=== PATIENT | female | born 1970 | race African-American/Black ===

== ENCOUNTER 2016-12-01 17:25 | Emergency (ER) | payer OTHER ==
[~2016-12-01] VITALS: Ht 170.2 cm; Wt 104.3 kg
[~2016-12-01 17:25] MED LIST: ASPI81TA11 PO; CLOP75TA PO; FURO-69 PO; FURO20TA3 PO; LEVO100T5 PO; LEVO175T5 PO; LEVO200T5 PO; LISI2.5T PO; METF10002 PO; SIMV10TA3 PO; SIMV20TA3 PO
[2016-12-01 20:38] LABS: BILIRUBIN,URINE NEGATIVE (NEG); GLUCOSE,URINE NEGATIVE (NEG); NITRITE,URINE NEGATIVE (NEG); PROTEIN,URINE NEGATIVE (NEG-TRACE)
[2016-12-01 21:01] LABS: RBC,URINE 0 /HPF (0-2)
[2016-12-01 21:02] LABS: BACTERIA,URINE FEW /HPF (0-FEW); SQUAMOUS EPITHELIAL CELL,UR OCC /LPF
[2016-12-01] MEDS ORDERED: IV NORMAL SALINE 1000ML BAG 1,000 ML IV SCH (21:16)
[2016-12-01 21:27] LABS: BASO % 0 % (0-3); EOS % 2 % (0-3); HEMATOCRIT 42.4 % (36.0-47.0); HEMOGLOBIN 13.9 g/dL (12.0-15.5); LYMPH # 2.3 x10^3/uL (1.0-4.8); LYMPH % 23 % (24-48); MEAN CORPUSCULAR HEMOGLOBIN 27 pg (25-35); MEAN CORPUSCULAR HGB CONC 33 g/dL (31-37); MEAN CORPUSCULAR VOLUME 83 fL (79-100); MONO % 7 % (0-9); NEUT % 69 % (31-73); PLATELET COUNT 278 x10^3/uL (140-400); RED BLOOD COUNT 5.09 x10^6/uL (3.50-5.40); WHITE BLOOD COUNT 10.3 x10^3/uL (4.0-11.0)
[2016-12-01 21:30] VITALS: BP 127/69
[2016-12-01] MEDS ORDERED: HYDROMORPHONE 2 MG/ML VIAL. IV ONE (21:30)
[2016-12-01] MEDS ORDERED: ONDANSETRON PF 4 MG/2 ML VIAL. IV ONE (21:30)
[2016-12-01] MEDS ORDERED: KETOROLAC 15 MG/ML VIAL. IV ONE (21:30)
[2016-12-01 21:36] LABS: CALCIUM 9.7 mg/dL (8.5-10.1); GFR 72.9; POTASSIUM 4.1 mmol/L (3.5-5.1)
[2016-12-01 21:42] LABS: ALBUMIN 4.3 g/dL (3.4-5.0); TOTAL BILIRUBIN 0.3 mg/dL (0.2-1.0); TOTAL PROTEIN 8.5 g/dL (6.4-8.2)
--- NOTE | 2016-12-01 22:31 | RAD ---
PROCEDURE CT of the abdomen pelvis without contrast HISTORY Right-sided flank pain TECHNIQUE Noncontrast helical CT scanning of the abdomen and pelvis was performed. Without GI contrast, the sensitivity to detect GI tract pathology is decreased. Without IV contrast, the sensitivity to detect organ pathology is decreased. COMPARISON FINDINGS The liver is homogeneous in appearance on this noncontrast study and is normal in size. The spleen is homogeneous appearance on this noncontrast study and is normal in size. The pancreas is homogeneous appearance on this noncontrast study and is not enlarged. The gallbladder appears normal and no radiopaque gallstones are seen. No extrahepatic biliary ductal dilatation is seen. No adrenal masses are seen. No renal stones or hydronephrosis or perinephric fluid collections are seen. No hydroureter is seen. No stones are evident within either ureter or within the lumen of the urinary bladder. The urinary bladder wall is smooth. No focal aneurysmal dilatation of the abdominal aorta is seen. No enlarged abdominal or pelvic lymphadenopathy is seen. No free intraperitoneal fluid or free intraperitoneal air is seen. No obstructive bowel pattern or inflammatory changes are seen. The lung bases are clear. No osteolytic process is seen. The appendix is not seen. IMPRESSION No acute CT abnormality of the abdomen or pelvis is seen on this non contrast study.Specifically, no urinary tract calculi or hydronephrosis or hydroureter is seen. Electronically signed by: Thuan Celestin MD (Dec 01, 2016 22:30:24)
[2016-12-01] MEDS ORDERED: CYCL10TA2 PO (23:26)
[2016-12-01] MEDS ORDERED: TRAM-29 PO (23:26)
--- NOTE | 2016-12-01 23:27 | PHYS DOC ---
Past Medical History Past Medical History: CHF, CVA, Diabetes-Type II, Hypertension, Hypothyroid Additional Past Medical Histor: DVT CVA 2010 CHF HTN DVT DM HYPOTHROID ECHO 2012 60% Past Surgical History: Appendectomy, Hysterectomy Alcohol Use: Occasionally Drug Use: None Adult General Chief Complaint Chief Complaint: FLANK PAIN HPI HPI Patient is a 46 year old female who presents to the ER today complaining of flank pain on the right side since . Patient reports she's had some tactile fevers at home. With nausea. No vomiting or diarrhea. Patient denies any dysuria frequency or urgency. Patient reports she's had decreased urinary output. Patient reports she has a history of hypertension and diabetes. She's had a stroke in the past. Patient has a history of CHF and a fatty liver. Patient reports that she's had never had a kidney infection or kidney stones in the past. She's had an appendectomy and a total abdominal hysterectomy in the past. Patient does not smoke or drink. Patient reports that the pain in her back is intermittent in nature. Patient reports the pain increases when she rotates her torso. Patient reports that she has discomfort when she urinates as well. She denies any hematuria. Patient denies any vaginal discharge or pain with sex. Patient's physical exam is significant for tenderness to palpation to her right flank area. Patient has reproducible pain when I rotate her torso. Patient's abdomen is soft nontender no rebound or guarding. Patient does not have any signs or symptoms of be consistent with an acute surgical abdomen. Patient's ER workup was significant for a CT scan of her abdomen and pelvis which was unremarkable. There was no evidence of any diverticulitis stones or hydronephrosis. Patient's UA was unremarkable no evidence of blood white cells. While in the ER patient was given pain medicines and she feels much improved in the ER. The patient the results of her tests and I feel that the pain that she is having is most likely consistent with mechanical back strain. I do not believe that this pain is consistent with a kidney stone or kidney infection given her normal workup in the ER. I discussed with the patient that I would be able send her home with some muscle relaxants and some pain medicines to assist her with her discomfort and have her follow-up with her primary care doctor within the week to reevaluate her if the pain does not go away within the next 24-48 hours. Patient was instructed to return to the ER if she has any fevers or any other concerns. Review of Systems Review of Systems Constitutional: Denies fever or chills [] Eyes: Denies change in visual acuity, redness, or eye pain [] All other review of systems are negative except as documented in the history of present illness portion. Current Medications Current Medications Current Medications Medications (Trade) Dose Ordered Sig/Nava Start Time Stop Time Status Last Admin Dose Admin Hydromorphone HCl (Dilaudid) 1 mg 1X ONCE 12/01/16 21:30 12/01/16 21:31 DC 12/01/16 21:27 1 MG Ketorolac Tromethamine (Toradol) 15 mg 1X ONCE 12/01/16 21:30 12/01/16 21:31 DC 12/01/16 21:27 15 MG Ondansetron HCl (Zofran) 4 mg 1X ONCE 12/01/16 21:30 12/01/16 21:31 DC 12/01/16 21:26 4 MG Sodium Chloride (Iv Sodium Chloride 0.9% 1000ml Bag) 1,000 ml @ 1,000 mls/hr Q1H 12/01/16 21:16 12/01/16 22:15 DC 12/01/16 21:26 1,000 MLS/HR Allergies Allergies Allergies Coded Allergies Type Severity Reaction Last Updated Verified Anesthetics - Amide Type Allergy Intermediate unknown type caused reaction during surgery 05/01/16 Yes Iodinated Contrast Media - IV Dye Allergy Intermediate Rash 05/01/16 Yes Penicillins Allergy Intermediate unknown 05/01/16 Yes Physical Exam Physical Exam Constitutional: Well developed, well nourished, no acute distress, non-toxic appearance. [] HENT: Normocephalic, atraumatic, bilateral external ears normal, oropharynx moist, no oral exudates, nose normal. [] Eyes: PERRLA, EOMI, conjunctiva normal, no discharge. [] Neck: Normal range of motion, no tenderness, supple, no stridor. [] Cardiovascular:Heart rate regular rhythm, no murmur [] Lungs & Thorax: Bilateral breath sounds clear to auscultation [] Abdomen: Bowel sounds normal, soft, no tenderness, no masses, no pulsatile masses. [] Skin: Warm, dry, no erythema, no rash. [] Back: See above Neurologic: Alert and oriented X 3, normal motor function, normal sensory function, no focal deficits noted. [] Psychologic: Affect normal, judgement normal, mood normal. [] Current Patient Data Vital Signs Vital Signs Date Time Temp Pulse Resp B/P Pulse Ox O2 Delivery O2 Flow Rate FiO2 12/01/16 21:27 20 99 12/01/16 19:26 98.3 116 119/90 Room Air 98.3 Lab Values Laboratory Tests Test 12/01/16 20:26 12/01/16 20:32 12/01/16 20:34 White Blood Count 10.3x10^3/uL (4.0-11.0) Red Blood Count 5.09x10^6/uL (3.50-5.40) Hemoglobin 13.9g/dL (12.0-15.5) Hematocrit 42.4% (36.0-47.0) Mean Corpuscular Volume 83fL (79-100) Mean Corpuscular Hemoglobin 27pg (25-35) Mean Corpuscular Hemoglobin Concent 33g/dL (31-37) Red Cell Distribution Width 15.0% (11.5-14.5) H Platelet Count 278x10^3/uL (140-400) Neutrophils (%) (Auto) 69% (31-73) Lymphocytes (%) (Auto) 23% (24-48) L Monocytes (%) (Auto) 7% (0-9) Eosinophils (%) (Auto) 2% (0-3) Basophils (%) (Auto) 0% (0-3) Neutrophils # (Auto) 7.0x10^3uL (1.8-7.7) Lymphocytes # (Auto) 2.3x10^3/uL (1.0-4.8) Monocytes # (Auto) 0.7x10^3/uL (0.0-1.1) Eosinophils # (Auto) 0.2x10^3/uL (0.0-0.7) Basophils # (Auto) 0.0x10^3/uL (0.0-0.2) Sodium Level 143mmol/L (136-145) Potassium Level 4.1mmol/L (3.5-5.1) Chloride Level 103mmol/L (98-107) Carbon Dioxide Level 31mmol/L (21-32) Anion Gap 9 (6-14) Blood Urea Nitrogen 12mg/dL (7-20) Creatinine 1.0mg/dL (0.6-1.0) Estimated GFR (Cockcroft-Gault) 72.9 BUN/Creatinine Ratio 12 (6-20) Glucose Level 122mg/dL (70-99) H Calcium Level 9.7mg/dL (8.5-10.1) Total Bilirubin 0.3mg/dL (0.2-1.0) Aspartate Amino Transferase (AST) 15U/L (15-37) Alanine Aminotransferase (ALT) 26U/L (14-59) Alkaline Phosphatase 105U/L (46-116) Total Protein 8.5g/dL (6.4-8.2) H Albumin 4.3g/dL (3.4-5.0) Albumin/Globulin Ratio 1.0 (1.0-1.7) Lipase 158U/L (73-393) Urine Color Yellow Urine Clarity Clear Urine pH 6.0 Urine Specific Moore >=1.030 Urine Protein Negativemg/dL (NEG-TRACE) Urine Glucose (UA) Negativemg/dL (NEG) Urine Ketones (Stick) Negativemg/dL (NEG) Urine Blood Negative (NEG) Urine Nitrite Negative (NEG) Urine Bilirubin Negative (NEG) Urine Urobilinogen Dipstick 1.0mg/dL (0.2 mg/dL) Urine Leukocyte Esterase Negative (NEG) Urine RBC 0/HPF (0-2) Urine WBC 1-4/HPF (0-4) Urine Squamous Epithelial Cells Occ/LPF Urine Bacteria Few/HPF (0-FEW) Urine Mucus Mod/LPF POC Urine HCG, Qualitative Hcg negative (Negative) Laboratory Tests 12/01/16 20:26 Laboratory Tests 12/01/16 20:26 EKG EKG [] Radiology/Procedures Radiology/Procedures [] Course & Med Decision Making Course & Med Decision Making Pertinent Labs and Imaging studies reviewed. (See chart for details) [] Dragon Disclaimer Dragon Disclaimer This electronic medical record was generated, in whole or in part, using a voice recognition dictation system. Departure Departure Impression: Primary Impression: Back pain Disposition: 01 HOME, SELF-CARE Condition: IMPROVED Referrals: YAIMA MIRANDA MD (PCP) Patient Instructions: Low Back Sprain with Rehab-[facility] Scripts Tramadol Hcl (Ultram)50 Mg Tablet1 Tab PO Q6HRS #14 TAB Prov:JAYCE MATIAS MD 12/01/16 Cyclobenzaprine Hcl 10 Mg [id number] Mg PO TID PRN MUSCLE PAIN #20 TAB Prov:JAYCE MATIAS MD 12/01/16 JAYCE MATIAS MD Dec 01, 2016 23:27
== END 2016-12-01 23:55 | disposition home or self-care (01) ==
LOC: ER 17:25
DX: M54.9 Dorsalgia, unspecified (principal); R50.9 Fever, unspecified; R10.9 Unspecified abdominal pain; E11.9 Type 2 diabetes mellitus without complications; I11.0 Hypertensive heart disease with heart failure; I50.9 Heart failure, unspecified; E03.9 Hypothyroidism, unspecified; Z86.73 Personal history of transient ischemic attack (TIA), and cerebral infarction without residual deficits; Z90.49 Acquired absence of other specified parts of digestive tract; Z90.710 Acquired absence of both cervix and uterus; Z88.0 Allergy status to penicillin; Z91.041 Radiographic dye allergy status; Z88.4 Allergy status to anesthetic agent; Z86.718 Personal history of other venous thrombosis and embolism
CPT/HCPCS: 36415; 74176; 80053; 81001; 81025; 83690; 85027; 96361; 96374; 96375; 99285; J1170; J1885; J2405; J7030

== ENCOUNTER 2017-07-01 20:17 | Observation (INO) | payer OTHER ==
[~2017-07-01] VITALS: Ht 170.2 cm; Wt 105.0 kg
[~2017-07-01 20:17] MED LIST changes: +CYCL10TA2 PO; +METF-620 PO; -METF10002 PO; +TRAM-48 PO
[2017-07-01 20:45] LABS: BASO # 0.1 x10^3/uL (0.0-0.2); BASO % 1 % (0-3); EOS % 3 % (0-3); HEMATOCRIT 42.8 % (36.0-47.0); HEMOGLOBIN 14.3 g/dL (12.0-15.5); LYMPH # 3.3 x10^3/uL (1.0-4.8); LYMPH % 37 % (24-48); MEAN CORPUSCULAR HEMOGLOBIN 28 pg (25-35); MEAN CORPUSCULAR HGB CONC 33 g/dL (31-37); MEAN CORPUSCULAR VOLUME 85 fL (79-100); MONO % 7 % (0-9); NEUT % 53 % (31-73); PLATELET COUNT 247 x10^3/uL (140-400); RED BLOOD COUNT 5.06 x10^6/uL (3.50-5.40)
[2017-07-01 21:00] LABS: GFR 72.5; POTASSIUM 3.5 mmol/L (3.5-5.1)
[2017-07-01] MEDS ORDERED: MORPHINE SULFATE 4 MG/ML DISP.SYRIN. IV PRN (21:00)
[2017-07-01] MEDS ORDERED: ASPIRIN CHEWABLE 81 MG TABLET. PO ONE (21:00)
[2017-07-01] MEDS ORDERED: NITROGLYCERIN SUBLINGUAL 0.4 MG BOTTLE OF 25. SL PRN (21:00)
[2017-07-01 21:05] LABS: ALBUMIN 4.6 g/dL (3.4-5.0); DIRECT BILIRUBIN 0.1 mg/dL (0.0-0.2); TOTAL BILIRUBIN 0.5 mg/dL (0.2-1.0); TOTAL PROTEIN 8.4 g/dL (6.4-8.2)
--- NOTE | 2017-07-01 21:47 | PHYS DOC ---
Past Medical History Past Medical History: CHF, Diabetes-Type II, Hypothyroid, Stroke Additional Past Medical Histor: DVT CVA 2010 CHF HTN DVT DM HYPOTHROID ECHO 2012 60% Past Surgical History: Appendectomy, Hysterectomy Alcohol Use: Occasionally Drug Use: None Adult General Chief Complaint Chief Complaint: CHEST PAIN HPI HPI 47-year-old female presenting to the emergency department today with nausea and chest pain that started about 24 hours ago. Her pain is a pressure sensation that comes and goes intermittently and came stronger around 1900. The pain radiates to her left jaw and shoulder. It is moderate. She reports a history of CVA. She also has a history of low thyroid, CHF diabetes. She denies unilateral leg swelling or hemoptysis. Review of systems is negative for fevers chills cough abdominal pain or vomiting. All other review of systems is negative unless otherwise noted in history of present illness. ED course: 47-year-old female presenting to the emergency department today with chest pain intermittently. Triage vital signs afebrile with a normal heart rate. EKG reviewed by myself shows leftward axis. Mildly prolonged QTC. ST segments are congruent. Not consistent with ACS. Chest x-ray obtained along with blood work. Patient was given aspirin and nitroglycerin. On reexamination her pain improved with the nitroglycerin. Troponin negative. Otherwise blood work unremarkable. Patient then admitted to the hospital for further evaluation workup and care. Cardiology consultation placed. Review of Systems Review of Systems SEE ABOVE. Current Medications Current Medications Current Medications Medications (Trade) Dose Ordered Sig/Nava Start Time Stop Time Status Last Admin Dose Admin Aspirin (Children'S Aspirin) 324 mg 1X ONCE 07/01/17 21:00 07/01/17 21:01 DC 07/01/17 21:00 324 MG Morphine Sulfate 2 mg PRN Q1HR PRN 07/01/17 21:00 07/01/17 21:03 2 MG Nitroglycerin (Nitrostat) 0.4 mg PRN Q5MIN PRN 07/01/17 21:00 07/01/17 21:02 0.4 MG Allergies Allergies Allergies Coded Allergies Type Severity Reaction Last Updated Verified Anesthetics - Amide Type Allergy Intermediate unknown type caused reaction during surgery 05/01/16 Yes Iodinated Contrast- Oral and IV Dye Allergy Intermediate Rash 05/01/16 Yes Penicillins Allergy Intermediate unknown 05/01/16 Yes Physical Exam Physical Exam SEE ABOVE Constitutional: Well developed, well nourished, no acute distress, non-toxic appearance. Pt appears mildly uncomfortable. HENT: Normocephalic, atraumatic, bilateral external ears normal, oropharynx moist, no oral exudates, nose normal. [] Eyes: PERRLA, EOMI, conjunctiva normal, no discharge. [] Neck: Normal range of motion, no tenderness, supple, no stridor. [] Cardiovascular:Heart rate regular rhythm, no murmur [] Lungs & Thorax: Bilateral breath sounds clear to auscultation Abdomen: Bowel sounds normal, soft, no tenderness, no masses, no pulsatile masses. [] Skin: Warm, dry, no erythema, no rash. [] Back: No tenderness, no CVA tenderness. Extremities: No tenderness, no cyanosis, no clubbing, ROM intact, no edema. [] Neurologic: Alert and oriented X 3, normal motor function, normal sensory function, no focal deficits noted. [] Psychologic: Affect normal, judgement normal, mood normal. Current Patient Data Vital Signs Vital Signs Date Time Temp Pulse Resp B/P (MAP) Pulse Ox O2 Delivery O2 Flow Rate FiO2 07/01/17 21:03 15 96 Room Air 07/01/17 21:02 77 113/72 07/01/17 20:22 98.3 98.3 Lab Values Laboratory Tests Test 07/01/17 20:35 White Blood Count 9.0 x10^3/uL (4.0-11.0) Red Blood Count 5.06 x10^6/uL (3.50-5.40) Hemoglobin 14.3 g/dL (12.0-15.5) Hematocrit 42.8 % (36.0-47.0) Mean Corpuscular Volume 85 fL (79-100) Mean Corpuscular Hemoglobin 28 pg (25-35) Mean Corpuscular Hemoglobin Concent 33 g/dL (31-37) Red Cell Distribution Width 16.0 % (11.5-14.5) H Platelet Count 247 x10^3/uL (140-400) Neutrophils (%) (Auto) 53 % (31-73) Lymphocytes (%) (Auto) 37 % (24-48) Monocytes (%) (Auto) 7 % (0-9) Eosinophils (%) (Auto) 3 % (0-3) Basophils (%) (Auto) 1 % (0-3) Neutrophils # (Auto) 4.7 x10^3uL (1.8-7.7) Lymphocytes # (Auto) 3.3 x10^3/uL (1.0-4.8) Monocytes # (Auto) 0.6 x10^3/uL (0.0-1.1) Eosinophils # (Auto) 0.2 x10^3/uL (0.0-0.7) Basophils # (Auto) 0.1 x10^3/uL (0.0-0.2) Sodium Level 138 mmol/L (136-145) Potassium Level 3.5 mmol/L (3.5-5.1) Chloride Level 99 mmol/L (98-107) Carbon Dioxide Level 26 mmol/L (21-32) Anion Gap 13 (6-14) Blood Urea Nitrogen 16 mg/dL (7-20) Creatinine 1.0 mg/dL (0.6-1.0) Estimated GFR (Cockcroft-Gault) 72.5 Glucose Level 112 mg/dL (70-99) H Calcium Level 10.0 mg/dL (8.5-10.1) Total Bilirubin 0.5 mg/dL (0.2-1.0) Direct Bilirubin 0.1 mg/dL (0.0-0.2) Aspartate Amino Transferase (AST) 14 U/L (15-37) L Alanine Aminotransferase (ALT) 21 U/L (14-59) Alkaline Phosphatase 92 U/L (46-116) Troponin I Quantitative < 0.017 ng/mL (0.000-0.055) MB-Zoc-N-Type Natriuretic Peptide 20 pg/mL (0-124) Total Protein 8.4 g/dL (6.4-8.2) H Albumin 4.6 g/dL (3.4-5.0) Lipase 221 U/L (73-393) Laboratory Tests 07/01/17 20:35 Laboratory Tests 07/01/17 20:35 EKG EKG [] Radiology/Procedures Radiology/Procedures [] Course & Med Decision Making Course & Med Decision Making Pertinent Labs and Imaging studies reviewed. (See chart for details) [] Dragon Disclaimer Dragon Disclaimer This electronic medical record was generated, in whole or in part, using a voice recognition dictation system. Departure Departure Impression: Primary Impression: Chest pain Disposition: ADMITTED INPATIENT Admitting Physician: Bee Harrison Condition: STABLE Referrals: YAIMA MIRANDA MD (PCP) LOUISE PINA MD Jul 01, 2017 21:46
[2017-07-01] MEDS ORDERED: MORPHINE SULFATE 2 MG/ML DISP.SYRIN. IV PRN (22:45)
[2017-07-01 23:30] VITALS: BP 117/71
[2017-07-01] MEDS: IV NORMAL SALINE 1000ML BAG 1,000 ML IV SCH (23:34)
[2017-07-01] MEDS: ONDANSETRON PF 4 MG/2 ML VIAL. IV PRN (23:46)
[2017-07-02 03:00] VITALS: BP 147/87
[2017-07-02 05:07] LABS: GFR 72.5; POTASSIUM 3.8 mmol/L (3.5-5.1)
[2017-07-02 05:10] LABS: BASO % 0 % (0-3); EOS % 3 % (0-3); HEMATOCRIT 39.6 % (36.0-47.0); HEMOGLOBIN 13.3 g/dL (12.0-15.5); LYMPH # 2.5 x10^3/uL (1.0-4.8); LYMPH % 37 % (24-48); MEAN CORPUSCULAR HEMOGLOBIN 28 pg (25-35); MEAN CORPUSCULAR HGB CONC 34 g/dL (31-37); MEAN CORPUSCULAR VOLUME 84 fL (79-100); MONO % 6 % (0-9); NEUT % 53 % (31-73); PLATELET COUNT 217 x10^3/uL (140-400); RED BLOOD COUNT 4.71 x10^6/uL (3.50-5.40); RED CELL DISTRIBUTION WIDTH 15.6 % (11.5-14.5); WHITE BLOOD COUNT 6.6 x10^3/uL (4.0-11.0)
--- NOTE | 2017-07-02 06:16 | EKG ---
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
[2017-07-02 07:00] VITALS: BP 112/71
--- NOTE | 2017-07-02 08:12 | RAD ---
Indication left-sided chest pain. A single view of the chest was obtained. Comparison is made to an examination 07/30/2016. The heart and pulmonary vessels appear normal. The lungs are clear of acute infiltrates. Significant pleural fluid is not seen. There is no pneumothorax. There has been little change compared to the previous exam. IMPRESSION: No acute or focal process. No significant change
[2017-07-02] MEDS: ONDANSETRON PF 4 MG/2 ML VIAL. IV PRN (08:40)
--- NOTE | 2017-07-02 08:40 | PDOC1 ---
History and Physical Date of Admission Date of Admission DATE: 07/02/17 TIME: 08:35 Identification/Chief Complaint Chief Complaint nausea and chest pain Problems: Source Source: Chart review, Patient History of Present Illness History of Present Illness MS. Cobb, 47-year-old female admit wt chest pressure and nausea. Nausea started yesterday at work, then chest pain an dpressure to mid chest up to left neck. Pain is reproducible mid chest and epigastrum, but other pain is pressure with radiation. no PO intake, nausea persists, pain 7/10 prior chf, cardiac arrythmia from thyroid disease, she has lost 20 lbs weight intentionally, and on vixtosza Hx DVT, on coumadin, ACS being ruled out, she has prior stress test done with Dr. Grover here, never had cardiac cath Past Medical History Cardiovascular: CAD, CHF, HTN, Hyperlipidemia, Other Pulmonary: No pertinent hx CENTRAL NERVOUS SYSTEM: CVA GI: GERD Heme/Onc: Other Hepatobiliary: Other Psych: Depression Musculoskeletal: Osteoarthritis Rheumatologic: No pertinent hx Infectious disease: No pertinent hx Renal/: Chronic renal insuff Endocrine: Diabetes, Hypothyroidism Past Surgical History Past Surgical History: Appendectomy, Hysterectomy Family History Family History: Diabetes Social History Smoke: No ALCOHOL: none Drugs: None Current Problem List Problem List Problems Medical Problems: (1) Chest pain Status: Acute Problems: Current Medications Current Medications Current Medications Aspirin (Children'S Aspirin) 324 mg 1X ONCE PO Last administered on 07/01/17 21:00; Start 07/01/17 at 21:00; Stop 07/01/17 at 21:01; Status DC Nitroglycerin (Nitrostat) 0.4 mg PRN Q5MIN PRN SL CHEST PAIN Last administered on 07/01/17 21:02; Start 07/01/17 at 21:00 Morphine Sulfate 2 mg PRN Q1HR PRN IV SEVERE PAIN Last administered on 21:03; Start 07/01/17 at 21:00 Ondansetron HCl (Zofran) 4 mg PRN Q8HRS PRN IV NAUSEA/VOMITING Last administered on 07/01/17 23:46; Start 07/01/17 at 22:45; Stop 07/02/17 at 22:44 Morphine Sulfate 2 mg PRN Q2HR PRN IV PAIN Last administered on 07/02/17 00:20 ; Start 07/01/17 at 22:45; Stop 07/02/17 at 22:44 Sodium Chloride 1,000 ml @ 100 mls/hr Q10H IV Last administered on 07/01/17 23:34; Start 07/01/17 at 22:45; Stop 07/02/17 at 22:44 Active Scripts Active Ultram (Tramadol Hcl) 50 Mg Tablet 1 Tab PO Q6HRS Cyclobenzaprine Hcl 10 Mg Tablet 10 Mg PO TID PRN Simvastatin 10 Mg Tablet 40 Mg PO QHS Clopidogrel (Clopidogrel Bisulfate) 75 Mg Tablet 75 Mg PO [id number] Reported Lisinopril 2.5 Mg Tablet 1 Tab PO DAILY Levothyroxine Sodium 175 Mcg Tablet 1 Tab PO DAILY Furosemide 20 Mg Tablet 1 Tab PO DAILY Allergies Allergies: Coded Allergies: Anesthetics - Amide Type (Verified Allergy, Intermediate, unknown type caused reaction during surgery, 05/01/16) Iodinated Contrast- Oral and IV Dye (Verified Allergy, Intermediate, Rash , 05/01/16) Penicillins (Verified Allergy, Intermediate, unknown, 05/01/16) UNKNOWN- PER PARENT A CHILD ROS General: YES: Fatigue, No: Chills, Night Sweats, Malaise, Appetite, Other PSYCHOLOGICAL ROS: No: Anxiety, Behavioral Disorder, Concentration difficultie , Decreased libido, Depression, Disorientation, Hallucinations, Hostility, Irritablity, Memory difficulties, Mood Swings, Obsessive thoughts, Physical abuse, Sexual abuse, Sleep disturbances, Suicidal ideation, Other Eyes: No Blurry vision, No Decreased vision, No Double vision, No Dry eyes, No Excessive tearing, No Eye Pain, No Itchy Eyes, No Loss of vision, No Photophobia , No Scotomata, No Uses contacts, No Uses glasses, No Other HEENT: YES: Heacaches, No: Visual Changes, Hearing change, Nasal congestion, Nasal discharge, Oral lesions, Sinus pain, Sore Throat, Epistaxis, Sneezing, Snoring, Tinnitus, Vertigo, Vocal changes, Other Respiratory: No: Cough, Hemoptysis, Orthopnea, Pleuritic Pain, Shortness of breath, SOB with excertion, Sputum Changes, Stridor, Tachypnea, Wheezing, Other Cardiovascular: No Chest Pain, No Palpitations, No Orthopnea, No Paroxysmal Noc. Dyspnea, No Edema, No Lt Headedness, No Other Gastrointestinal: No Nausea, No Vomiting, No Abdominal Pain, No Diarrhea, No Constipation, No Melena, No Hematochezia, No Other Genitourinary: No Dysuria, No Frequency, No Incontinence, No Hematuria, No Retention, No Discharge, No Urgency, No Pain, No Flank Pain, No Other, No , No , No , No , No , No , No Musculoskeletal: No Gait Disturbance, No Joint Pain, No Joint Stiffness, No Joint Swelling, No Muscle Pain, No Muscular Weakness, No Pain In:, No Swelling In:, No Other Neurological: No Behavorial Changes, No Bowel/Bladder ControlChng, No Confusion , No Dizziness, No Gait Disturbance, No Headaches, No Impaired Coord/balance, No Memory Loss, No Numbness/Tingling, No Seizures, No Speech Problems, No Tremors, No Visual Changes, No Weakness, No Other Skin: No Dry Skin, No Eczema, No Hair Changes, No Lumps, No Mole Changes, No Mottling, No Nail Changes, No Pruritus, No Rash, No Skin Lesion Changes, No Other, No Acne Physical Exam General: Alert, Oriented X3, Cooperative, No acute distress HEENT: EOMI, Mucous membr. moist/pink Lungs: Clear to auscultation, Normal air movement Heart: S1S2, no gallops, no murmurs Abdomen: Normal bowel sounds, Soft Rectal Exam: not examined Extremities: No clubbing, No edema, Normal pulses Neuro: Normal speech, Normal tone, Sensation intact, Cranial nerves 3-12 NL Psych/Mental Status: Mood NL Vitals Vitals Vital Signs Date Time Temp Pulse Resp B/P (MAP) Pulse Ox O2 Delivery O2 Flow Rate FiO2 07/02/17 07:00 97.7 68 20 112/71 (85) 97 Room Air 97.7 Labs Labs Laboratory Tests Test 07/01/17 20:35 07/02/17 04:45 07/02/17 07:49 White Blood Count 9.0 x10^3/uL (4.0-11.0) 6.6 x10^3/uL (4.0-11.0) Red Blood Count 5.06 x10^6/uL (3.50-5.40) 4.71 x10^6/uL (3.50-5.40) Hemoglobin 14.3 g/dL (12.0-15.5) 13.3 g/dL (12.0-15.5) Hematocrit 42.8 % (36.0-47.0) 39.6 % (36.0-47.0) Mean Corpuscular Volume 85 fL (79-100) 84 fL (79-100) Mean Corpuscular Hemoglobin 28 pg (25-35) 28 pg (25-35) Mean Corpuscular Hemoglobin Concent 33 g/dL (31-37) 34 g/dL (31-37) Red Cell Distribution Width 16.0 % (11.5-14.5) 15.6 % (11.5-14.5) Platelet Count 247 x10^3/uL (140-400) 217 x10^3/uL (140-400) Neutrophils (%) (Auto) 53 % (31-73) 53 % (31-73) Lymphocytes (%) (Auto) 37 % (24-48) 37 % (24-48) Monocytes (%) (Auto) 7 % (0-9) 6 % (0-9) Eosinophils (%) (Auto) 3 % (0-3) 3 % (0-3) Basophils (%) (Auto) 1 % (0-3) 0 % (0-3) Neutrophils # (Auto) 4.7 x10^3uL (1.8-7.7) 3.5 x10^3uL (1.8-7.7) Lymphocytes # (Auto) 3.3 x10^3/uL (1.0-4.8) 2.5 x10^3/uL (1.0-4.8) Monocytes # (Auto) 0.6 x10^3/uL (0.0-1.1) 0.4 x10^3/uL (0.0-1.1) Eosinophils # (Auto) 0.2 x10^3/uL (0.0-0.7) 0.2 x10^3/uL (0.0-0.7) Basophils # (Auto) 0.1 x10^3/uL (0.0-0.2) 0.0 x10^3/uL (0.0-0.2) Sodium Level 138 mmol/L (136-145) 138 mmol/L (136-145) Potassium Level 3.5 mmol/L (3.5-5.1) 3.8 mmol/L (3.5-5.1) Chloride Level 99 mmol/L (98-107) 101 mmol/L (98-107) Carbon Dioxide Level 26 mmol/L (21-32) 29 mmol/L (21-32) Anion Gap 13 (6-14) 8 (6-14) Blood Urea Nitrogen 16 mg/dL (7-20) 14 mg/dL (7-20) Creatinine 1.0 mg/dL (0.6-1.0) 1.0 mg/dL (0.6-1.0) Estimated GFR (Cockcroft-Gault) 72.5 72.5 Glucose Level 112 mg/dL (70-99) 100 mg/dL (70-99) Calcium Level 10.0 mg/dL (8.5-10.1) 9.0 mg/dL (8.5-10.1) Total Bilirubin 0.5 mg/dL (0.2-1.0) Direct Bilirubin 0.1 mg/dL (0.0-0.2) Aspartate Amino Transf (AST/SGOT) 14 U/L (15-37) Alanine Aminotransferase (ALT/SGPT) 21 U/L (14-59) Alkaline Phosphatase 92 U/L (46-116) Troponin I Quantitative < 0.017 ng/mL (0.000-0.055) < 0.017 ng/mL (0.000-0.055) XT-Qrd-I-Type Natriuretic Peptide 20 pg/mL (0-124) Total Protein 8.4 g/dL (6.4-8.2) Albumin 4.6 g/dL (3.4-5.0) Lipase 221 U/L (73-393) Glucose (Fingerstick) 110 mg/dL (70-99) Laboratory Tests Test 07/01/17 20:35 07/02/17 04:45 07/02/17 07:49 White Blood Count 9.0 x10^3/uL (4.0-11.0) 6.6 x10^3/uL (4.0-11.0) Red Blood Count 5.06 x10^6/uL (3.50-5.40) 4.71 x10^6/uL (3.50-5.40) Hemoglobin 14.3 g/dL (12.0-15.5) 13.3 g/dL (12.0-15.5) Hematocrit 42.8 % (36.0-47.0) 39.6 % (36.0-47.0) Mean Corpuscular Volume 85 fL (79-100) 84 fL (79-100) Mean Corpuscular Hemoglobin 28 pg (25-35) 28 pg (25-35) Mean Corpuscular Hemoglobin Concent 33 g/dL (31-37) 34 g/dL (31-37) Red Cell Distribution Width 16.0 % (11.5-14.5) 15.6 % (11.5-14.5) Platelet Count 247 x10^3/uL (140-400) 217 x10^3/uL (140-400) Neutrophils (%) (Auto) 53 % (31-73) 53 % (31-73) Lymphocytes (%) (Auto) 37 % (24-48) 37 % (24-48) Monocytes (%) (Auto) 7 % (0-9) 6 % (0-9) Eosinophils (%) (Auto) 3 % (0-3) 3 % (0-3) Basophils (%) (Auto) 1 % (0-3) 0 % (0-3) Neutrophils # (Auto) 4.7 x10^3uL (1.8-7.7) 3.5 x10^3uL (1.8-7.7) Lymphocytes # (Auto) 3.3 x10^3/uL (1.0-4.8) 2.5 x10^3/uL (1.0-4.8) Monocytes # (Auto) 0.6 x10^3/uL (0.0-1.1) 0.4 x10^3/uL (0.0-1.1) Eosinophils # (Auto) 0.2 x10^3/uL (0.0-0.7) 0.2 x10^3/uL (0.0-0.7) Basophils # (Auto) 0.1 x10^3/uL (0.0-0.2) 0.0 x10^3/uL (0.0-0.2) Sodium Level 138 mmol/L (136-145) 138 mmol/L (136-145) Potassium Level 3.5 mmol/L (3.5-5.1) 3.8 mmol/L (3.5-5.1) Chloride Level 99 mmol/L (98-107) 101 mmol/L (98-107) Carbon Dioxide Level 26 mmol/L (21-32) 29 mmol/L (21-32) Anion Gap 13 (6-14) 8 (6-14) Blood Urea Nitrogen 16 mg/dL (7-20) 14 mg/dL (7-20) Creatinine 1.0 mg/dL (0.6-1.0) 1.0 mg/dL (0.6-1.0) Estimated GFR (Cockcroft-Gault) 72.5 72.5 Glucose Level 112 mg/dL (70-99) 100 mg/dL (70-99) Calcium Level 10.0 mg/dL (8.5-10.1) 9.0 mg/dL (8.5-10.1) Total Bilirubin 0.5 mg/dL (0.2-1.0) Direct Bilirubin 0.1 mg/dL (0.0-0.2) Aspartate Amino Transf (AST/SGOT) 14 U/L (15-37) Alanine Aminotransferase (ALT/SGPT) 21 U/L (14-59) Alkaline Phosphatase 92 U/L (46-116) Troponin I Quantitative < 0.017 ng/mL (0.000-0.055) < 0.017 ng/mL (0.000-0.055) YG-Ooz-Q-Type Natriuretic Peptide 20 pg/mL (0-124) Total Protein 8.4 g/dL (6.4-8.2) Albumin 4.6 g/dL (3.4-5.0) Lipase 221 U/L (73-393) Glucose (Fingerstick) 110 mg/dL (70-99) VTE Prophylaxis Ordered VTE Prophylaxis Devices: Yes VTE Pharmacological Prophylaxi: No Assessment/Plan Assessment/Plan nausea and chest pain, prior chf, w./u for CAD neg prev. obesity, BMI 36 Dm2, htn and hyperlipids prior CHF hypothyroid LEO CARLOS MD Jul 02, 2017 08:40
[2017-07-02] MEDS: IV NORMAL SALINE 1000ML BAG 1,000 ML IV SCH ×2 (08:41→20:43)
[2017-07-02 08:46] LABS: CHOLESTEROL/HDL RATIO 6.1
--- NOTE | 2017-07-02 09:30 | PDOC2 ---
SOURAV PRADHAN ANGLEDOZER OPERATOR 07/02/17 0930: CARDIAC CONSULT DATE OF CONSULT Date of Consult DATE: 07/02/17 TIME: 09:19 REASON FOR CONSULT Reason for Consult: CP r/o REFERRING PHYSICIAN Referring Physician: Arthur SOURCE Source: Chart review, Patient HISTORY OF PRESENT ILLNESS HISTORY OF PRESENT ILLNESS This is a pleasant 47 yo female admitted for complains of chest pain. Reports that Thursday she started having lower midchest pressure. This was associated with nausea. Yesterday this recurred again which then radiated to her left jaw and shoulder. This was pressure like and finally was relieved with NTG x1 in ED. Reports no SOA but not able to take a deep breath when she was having CP and felt anxious. She has been having intermittent heartburn but moreso when she eats spicy food. She takes Tums intermittently. She still has occasional palpitations and felt that she also had it last night but none was recorded on tele monitor. She has been feeling more tired lately but none of these other symptoms have been present prior to Thursday. She works 2 jobs and no symptoms of LANDA. Denies any PND, orthopnea. She has been compliant with her regular medications including her BP meds but does not check her BP. She has lost >20 pounds and felt that she has been doing well till Thursday. She does take chronic coumadin due to 2 DVT episodes in the past but never had any PE. PAST MEDICAL HISTORY Past Medical History Cardiovascular: CHF, HTN, Hyperlipidemia, Valve insufficiency Pulmonary: No pertinent hx CENTRAL NERVOUS SYSTEM: CVA (2011 treated with tPA), Peripheral neuropathy, Migraine? 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 ) Dermatology: No pertinent hx PAST SURGICAL HISTORY Past Surgical History Appendectomy, Hysterectomy FAMILY HISTORY Family History: Diabetes SOCIAL HISTORY Smoke: No ALCOHOL: none Drugs: None CURRENT MEDICATIONS CURRENT MEDICATIONS Current Medications Medications (Trade) Dose Ordered Sig/Nava Route PRN Reason Start Time Stop Time Status Last Admin Dose Admin Aspirin (Children'S Aspirin) 324 mg 1X ONCE PO 07/01/17 21:00 07/01/17 21:01 DC 07/01/17 21:00 Nitroglycerin (Nitrostat) 0.4 mg PRN Q5MIN PRN SL CHEST PAIN 07/01/17 21:00 07/01/17 21:02 Morphine Sulfate 2 mg PRN Q1HR PRN IV SEVERE PAIN 07/01/17 21:00 07/01/17 21:03 Ondansetron HCl (Zofran) 4 mg PRN Q8HRS PRN IV NAUSEA/VOMITING 07/01/17 22:45 07/02/17 22:44 07/02/17 08:40 Morphine Sulfate 2 mg PRN Q2HR PRN IV PAIN 07/01/17 22:45 07/02/17 22:44 07/02/17 00:20 Sodium Chloride 1,000 ml @ 100 mls/hr Q10H IV 07/01/17 22:45 07/02/17 22:44 07/02/17 08:41 ALLERGIES ALLERGIES: Coded Allergies: Iodinated Contrast- Oral and IV Dye (Verified Allergy, Intermediate, Rash , 05/01/16) Penicillins (Verified Allergy, Intermediate, unknown, 05/01/16) UNKNOWN- PER PARENT A CHILD sevoflurane (Unverified Adverse Reaction, Unknown, GAS ANESTHETIC - NAUSEA , 07/02/17) ROS Review of System 14 point ROS evaluated with pertinent positives noted per HPI PHYSICAL EXAM General: Alert, Oriented X3, Cooperative, No acute distress HEENT: Atraumatic, Mucous membr. moist/pink Lungs: Clear to auscultation, Normal air movement Heart: Regular rate (SR), Normal S1, Normal S2, Other (2/6 systolic murmur to LLS border) Extremities: No cyanosis, No edema Skin: No breakdown, No significant lesion Neuro: Normal speech, Sensation intact Psych/Mental Status: Mental status NL, Mood NL MUSCULOSKELETAL: Osteoarthritic changes both hands VITALS VITALS Vital Signs Date Time Temp Pulse Resp B/P (MAP) Pulse Ox O2 Delivery O2 Flow Rate FiO2 07/02/17 07:00 97.7 68 20 112/71 (85) 97 Room Air 97.7 LABS Lab: Laboratory Tests Test 07/01/17 20:35 07/02/17 04:45 07/02/17 07:49 White Blood Count 9.0 x10^3/uL (4.0-11.0) 6.6 x10^3/uL (4.0-11.0) Red Blood Count 5.06 x10^6/uL (3.50-5.40) 4.71 x10^6/uL (3.50-5.40) Hemoglobin 14.3 g/dL (12.0-15.5) 13.3 g/dL (12.0-15.5) Hematocrit 42.8 % (36.0-47.0) 39.6 % (36.0-47.0) Mean Corpuscular Volume 85 fL (79-100) 84 fL (79-100) Mean Corpuscular Hemoglobin 28 pg (25-35) 28 pg (25-35) Mean Corpuscular Hemoglobin Concent 33 g/dL (31-37) 34 g/dL (31-37) Red Cell Distribution Width 16.0 % (11.5-14.5) 15.6 % (11.5-14.5) Platelet Count 247 x10^3/uL (140-400) 217 x10^3/uL (140-400) Neutrophils (%) (Auto) 53 % (31-73) 53 % (31-73) Lymphocytes (%) (Auto) 37 % (24-48) 37 % (24-48) Monocytes (%) (Auto) 7 % (0-9) 6 % (0-9) Eosinophils (%) (Auto) 3 % (0-3) 3 % (0-3) Basophils (%) (Auto) 1 % (0-3) 0 % (0-3) Neutrophils # (Auto) 4.7 x10^3uL (1.8-7.7) 3.5 x10^3uL (1.8-7.7) Lymphocytes # (Auto) 3.3 x10^3/uL (1.0-4.8) 2.5 x10^3/uL (1.0-4.8) Monocytes # (Auto) 0.6 x10^3/uL (0.0-1.1) 0.4 x10^3/uL (0.0-1.1) Eosinophils # (Auto) 0.2 x10^3/uL (0.0-0.7) 0.2 x10^3/uL (0.0-0.7) Basophils # (Auto) 0.1 x10^3/uL (0.0-0.2) 0.0 x10^3/uL (0.0-0.2) Sodium Level 138 mmol/L (136-145) 138 mmol/L (136-145) Potassium Level 3.5 mmol/L (3.5-5.1) 3.8 mmol/L (3.5-5.1) Chloride Level 99 mmol/L (98-107) 101 mmol/L (98-107) Carbon Dioxide Level 26 mmol/L (21-32) 29 mmol/L (21-32) Anion Gap 13 (6-14) 8 (6-14) Blood Urea Nitrogen 16 mg/dL (7-20) 14 mg/dL (7-20) Creatinine 1.0 mg/dL (0.6-1.0) 1.0 mg/dL (0.6-1.0) Estimated GFR (Cockcroft-Gault) 72.5 72.5 Glucose Level 112 mg/dL (70-99) 100 mg/dL (70-99) Calcium Level 10.0 mg/dL (8.5-10.1) 9.0 mg/dL (8.5-10.1) Total Bilirubin 0.5 mg/dL (0.2-1.0) Direct Bilirubin 0.1 mg/dL (0.0-0.2) Aspartate Amino Transf (AST/SGOT) 14 U/L (15-37) Alanine Aminotransferase (ALT/SGPT) 21 U/L (14-59) Alkaline Phosphatase 92 U/L (46-116) Troponin I Quantitative < 0.017 ng/mL (0.000-0.055) < 0.017 ng/mL (0.000-0.055) WN-Yzf-A-Type Natriuretic Peptide 20 pg/mL (0-124) Total Protein 8.4 g/dL (6.4-8.2) Albumin 4.6 g/dL (3.4-5.0) Lipase 221 U/L (73-393) Triglycerides Level 122 mg/dL (0-150) Cholesterol Level 218 mg/dL (0-200) LDL Cholesterol, Calculated 158 mg/dL (0-100) VLDL Cholesterol, Calculated 24 mg/dL (0-40) Non-HDL Cholesterol Calculated 182 mg/dL (0-129) HDL Cholesterol 36 mg/dL (40-60) Cholesterol/HDL Ratio 6.1 Glucose (Fingerstick) 110 mg/dL (70-99) ECHOCARDIOGRAM ECHOCARDIOGRAM <Conclusion> The left ventricular systolic function is normal and the ejection fraction is within normal range. The Ejection Fraction is 55-60%. There is normal LV segmental wall motion. The interatrial septum is intact with no evidence for an atrial septal defect or patent foramen ovale as noted on 2-D or Doppler imaging. Injection of bubbles documented no interatrial shunt. Limited echo only. DATE: 07/31/16 1354 STRESS TEST STRESS TEST Conclusion 1. No evidence of stress induced EKG changes 2. Normal myocardial perfusion at stress/rest 3. Normal EF at > 60% 4. Low risk study DATE: 05/01/16 1310 ASSESSMENT/PLAN ASSESSMENT/PLAN 1. Chest pain: Troponin series normal, EKG SR without acute changes. Possibly GI 2. HTN: controlled 3. DM2/DLP 4. HLP: not on goal 5. Hypothyroidism 6. Obesity 7. Hx of CVA 8. Hx of DVT with chronic OAC: last known INR check was 02/2017 9. GERD 10. Hx of NSVT: Still still has intermittent palpitations, but no recorded arrhythmias overnight. EP referral declined in the past. 11. Hx of IV contrast allergy: respiratory arrest 12. suspecting degree of noncompliance. Recommendations 1. TTE and MPI today. Discussed LHC but would prefer MPI at this time. 2. Optimize statin 3. Will note what pt is taking ASA or plavix and will restart accordingly 4. Defer coumadin therapy to PCP 5. Continue secondary prevention 6. Start on PPI. Continue on home metoprolol. 7. TSH, PT/INR, and DDIMER 8. No forms of exercise but has lost >20 pounds. Continue lifestyle modifications. Problems: JANET DUFFY MD 07/03/17 0728: CARDIAC CONSULT ALLERGIES ALLERGIES: Coded Allergies: Iodinated Contrast- Oral and IV Dye (Verified Allergy, Intermediate, Rash , 05/01/16) Penicillins (Verified Allergy, Intermediate, unknown, 05/01/16) UNKNOWN- PER PARENT A CHILD sevoflurane (Unverified Adverse Reaction, Unknown, GAS ANESTHETIC - NAUSEA , 07/02/17) ASSESSMENT/PLAN ASSESSMENT/PLAN Patient seen and examined 07/02/17. Agree with PATIENT REGISTRATION CLERK's assessment and plan. Chest pain with atypical features. Myocardial infarction ruled out. 2-D echo showed normal LV systolic function and Lexiscan nuclear stress test did not show any significant ischemia. Okay for discharge from cardiac standpoint. Thank you for your consultation. Problems: SOURAV PRADHAN APRN Jul 02, 2017 09:30 JANET DUFFY MD Jul 03, 2017 07:44
[2017-07-02 11:10] VITALS: BP 107/74
[2017-07-02] MEDS ORDERED: METOPROLOL SUCC 24HR ER 25 MG TAB.ER.24H. PO SCH (11:30)
[2017-07-02] MEDS ORDERED: PANTOPRAZOLE 40 MG TABLET.DR. PO SCH (11:30)
[2017-07-02] MEDS ORDERED: REGADENOSON 0.4 MG/5 ML DISP.SYRIN. IV ONE ×2 (12:18→12:45)
[2017-07-02] MEDS ORDERED: LEVOTHYROXINE 150 MCG TABLET PO SCH (12:30)
--- NOTE | 2017-07-02 12:51 | CARD ---
APPROVED REPORT EXAM: Two-dimensional and M-mode echocardiogram with Doppler and color Doppler. Other Information Quality : Average Rhythm : NSR INDICATION Chest Pain 2D DIMENSIONS Left Atrium(2D)2.9 (1.6-4.0cm)IVSd1.5 (0.7-1.1cm) Aortic Root(2D)2.5 (2.0-3.7cm)LVDd4.2 (3.9-5.9cm) LVOT Diameter2.0 (1.8-2.4cm)PWd1.4 (0.7-1.1cm) LVDs3.1 (2.5-4.0cm)FS (%) 25.1 % SV38.9 mlLVEF(%)50.1 (>50%) Aortic Valve AoV Peak Daniel.121.2cm/sAoV VTI22.6cm AO Peak GR.5.9mmHgLVOT Peak Daniel.86.0cm/s AO Mean GR.3mmHgAVA (VMAX)2.14cm2 Mitral Valve MV E Dgikefjv39.8cm/sMV DECEL [id number] MV A Xwbozsww39.3cm/sMV QSR07vj E/A Ratio1.0MV A [id number] MVA (PHT)4.03cm2 Tricuspid Valve TR P. [id number]/sRAP [id number] TR Peak Gr.[id number] LEFT VENTRICLE The left ventricle is normal size. There is mild concentric left ventricular hypertrophy. Left ventri agatha systolic function is normal. The Ejection Fraction is 50-55%. There is normal LV segmental wall m otion. The left ventricular diastolic function and filling is normal for age. There is no ventricular septal defect visualized. RIGHT VENTRICLE The right ventricle is normal size. The right ventricular systolic function is normal. ATRIA The left atrium size is normal. The right atrium size is normal. The interatrial septum is intact wit h no evidence for an atrial septal defect or patent foramen ovale as noted on 2-D or Doppler imaging. AORTIC VALVE The aortic valve is normal in structure and function. The aortic valve is trileaflet. Doppler and Col or Flow revealed no significant aortic regurgitation. There is no significant aortic valvular stenosi s. MITRAL VALVE The mitral valve is normal in structure and function. There is no mitral valve stenosis. Doppler and Color Flow revealed mild mitral regurgitation. TRICUSPID VALVE The tricuspid valve is normal in structure and function. Doppler and Color Flow revealed trace tricus pid regurgitation. The PA pressure was estimated at 18 mmHg. There is no tricuspid valve stenosis. PULMONIC VALVE The pulmonic valve is not well visualized. Doppler and Color Flow revealed no pulmonic valvular regur gitation. There is no pulmonic valvular stenosis. GREAT VESSELS The aortic root is normal in size. The ascending aorta is normal in size. Pulmonary veins not recorde d. The IVC was not visualized. PERICARDIAL EFFUSION There is no evidence of significant pericardial effusion. Critical Notification Critical Value: No <Conclusion> Left ventricle systolic function is normal. The Ejection Fraction is 50-55%. There is normal LV segmental wall motion. Mild mitral regurgitation. Trace tricuspid regurgitation. The PA pressure was estimated at 18 mmHg. There is no evidence of significant pericardial effusion.
[2017-07-02] MEDS ORDERED: CYCLOBENZAPRINE 10 MG TABLET. PO PRN (13:45)
[2017-07-02] MEDS ORDERED: LISINOPRIL 2.5 MG TABLET PO SCH (14:00)
--- NOTE | 2017-07-02 14:50 | RAD ---
APPROVED REPORT Test Type: Pharmacological Stress Nurse/Tech: Henna Padilla R.N. Test Indications: c/p Cardiac History: htn, stroke Medications: See Electronic Medical Record Medical History: See Electronic Medical Record Resting ECG: SR Resting Heart Rate: 72 bpm Resting Blood Pressure: 115/71mmHg Pretest Chest Pain: No chest pain Nurse/Tech Notes S1S2, lungs CTA Consent: The procedure was explained to the patient in lay terms. Informed consent was witnessed. Reinaldo eout was entered into PostedIn. History and Stress Test performed by RT Gladys RomeoR) (N) Pharm. Details Pharmacologic stress testing was performed using 0.4mg per 5ml of regadenoson given intravenously ove r 7-10 seconds. Stress Symptoms dyspnea, stomach pain and queasiness POST EXERCISE Reason for Termination: Infusion complete Max HR: 131 bpm Max Blood Pressure: 123/71mmHg Blood Pressure response to exercise: Normal blood pressure response during stress. Heart Rate response to exercise: wnl Chest Pain: No. Arrhythmia: No. ST Change: No. INTERPRETATION Stress EKG Conclusion: Baseline EKG showed sinus rhythm. No ischemic changes at peak stress. No arr hythmias. Imaging Protocol IMAGE PROTOCOL: Stress Tc-99m/rest Tc-99m 2 days Rest: Stress: Viability: Radiopharm.Tc99m Sestamibi [id number] Duration 10min. Img Date 07/02/2017 Inj-Img [id number]. Stress Admin Site: IV - Left AntecubitalAdministrator: RT Gladys RomeoR)(N) STRESS DATA End Diast. Vol.88.0mlAv. Heart Rate79.0bpm End Syst. Vol.23.0mlCO Index BSA0.0L/min Myocardial Xcge415.0gEject. Zxsoihjj51.0% Stress Rates Pk. Fill Rate2.90EDV/secLVtime Pk. Fill 158.91msec Pk. Empty Rate3.43ESV/secLVtime Pk. Eject77.65msec 10/14 Pk. Fill1.29EDV/sec Stress Scores Regional WT0.00Summed WT0.00 Regional WM0.00Summed WM1.00 LV Perfusion Stress scintigraphic images did not show any significant perfusion defects Wall Motion Normal left ventricular systolic function with ejection fraction calculated at 74% LV Perf. Quant 17 Seg. SSS0.00 Stress Defect Extent (% LAD)0.00Rest Defect Extent (% LAD)Rev. Defect Extent (% LAD)0.00 Stress Defect Extent (% LCX) 0.00Rest Defect Extent (% LCX)Rev. Defect Extent (% LCX)0.00 Stress Defect Extent (% RCA)0.00Rest Defect Extent (% RCA)Rev. Defect Extent (% RCA)0.00 Stress Defect Extent (% HAWA)0.00Rest Defect Extent (% HAWA)Rev. Defect Extent (% HAWA)0.00 Conclusion 1. Regadenoson cardioisotope stress test did not show any evidence of ischemia or infarct. 2. Normal left ventricular systolic function with ejection fraction calculated at 74%. 3. Low risk for cardiac events.
[2017-07-02 15:00] VITALS: BP 99/55
[2017-07-02 15:07] VITALS: BP 99/55
[2017-07-02] MEDS ORDERED: traMADol 50 MG TABLET PO SCH (18:00)
[2017-07-02 19:00] VITALS: BP 104/61
[2017-07-02] MEDS ORDERED: TRAM-48 PO (20:48)
[2017-07-02] MEDS ORDERED: METO-239 PO (20:53)
[2017-07-02] MEDS ORDERED: LIDO700A39 TD (20:53)
[2017-07-02] MEDS ORDERED: OXYC-323 PO (20:53)
[2017-07-02] MEDS ORDERED: LEVO100T PO (20:53)
[2017-07-02] MEDS ORDERED: LIDOCAINE (700MG/PATCH) PATCH. TD SCH (21:00)
[2017-07-02] MEDS ORDERED: SIMVASTATIN 40 MG TABLET. PO SCH (21:00)
[2017-07-02] MEDS ORDERED: ATORVASTATIN CALCIUM 40 MG TABLET. PO SCH (21:00)
[2017-07-03] MEDS ORDERED: LEVOTHYROXINE 100 MCG TABLET PO SCH (07:00)
[2017-07-03] MEDS ORDERED: CLOPIDOGREL BISULFATE 75 MG TABLET PO SCH (08:00)
== END 2017-07-02 22:00 | disposition home or self-care (01) ==
LOC: ER 20:17 → 5 SOUTH 22:15 → 5 NORTH 07-02 13:54
PROVIDERS: ADMIT Internal Medicine; ATTEND Internal Medicine
DX: R07.89 Other chest pain (principal); R11.0 Nausea; E66.9 Obesity, unspecified; I13.0 Hypertensive heart and chronic kidney disease with heart failure and stage 1 through stage 4 chronic kidney disease, or unspecified chronic kidney disease; E11.22 Type 2 diabetes mellitus with diabetic chronic kidney disease; E78.5 Hyperlipidemia, unspecified; I25.10 Atherosclerotic heart disease of native coronary artery without angina pectoris; E03.9 Hypothyroidism, unspecified; K21.9 Gastro-esophageal reflux disease without esophagitis; I50.9 Heart failure, unspecified; E11.42 Type 2 diabetes mellitus with diabetic polyneuropathy; I45.81 Long QT syndrome; M19.90 Unspecified osteoarthritis, unspecified site; F32.9 Major depressive disorder, single episode, unspecified; Z79.01 Long term (current) use of anticoagulants; Z83.3 Family history of diabetes mellitus; Z68.36 Body mass index [BMI] 36.0-36.9, adult; Z86.718 Personal history of other venous thrombosis and embolism; Z86.73 Personal history of transient ischemic attack (TIA), and cerebral infarction without residual deficits; Z90.49 Acquired absence of other specified parts of digestive tract; Z90.710 Acquired absence of both cervix and uterus; Z91.041 Radiographic dye allergy status
CPT/HCPCS: 36415; 71010; 78452; 80048; 80061; 80076; 82962; 83690; 83880; 84439; 84443; 84484; 85025; 85379; 85610; 93005; 93017; 93306; 96361; 96374; 96375; 96376; 99285; A9500; G0378; J2270; J2405; J2785; J7030; G0379

== ENCOUNTER 2017-08-04 19:31 | Emergency (ER) | payer OTHER ==
[~2017-08-04] VITALS: Ht 167.6 cm; Wt 104.8 kg
[~2017-08-04 19:31] MED LIST changes: +LEVO100T PO; +LIDO700A39 TD; +METO-239 PO; +OXYC-323 PO
[2017-08-04 20:01] VITALS: BP 159/93
[2017-08-04] MEDS ORDERED: SULF1TAB24 PO (20:35)
--- NOTE | 2017-08-04 20:36 | PHYS DOC ---
Past Medical History Past Medical History: CHF, Diabetes-Type II, Hypothyroid, Stroke Additional Past Medical Histor: DVT CVA 2010 CHF HTN DVT DM HYPOTHROID ECHO 2012 60% Past Surgical History: Appendectomy, Hysterectomy Alcohol Use: Occasionally Drug Use: None Adult General Chief Complaint Chief Complaint: ABSCESS HPI HPI Patient is a 47 year old female with a history of diabetes presents the ED complaining of abscess to left upper thigh. States it appeared last and has been getting worse since then. Complains of surrounding redness. Describes the pain as sharp. Rates the pain as 8 out of 10. History of other abscess in the past. Denies fever, headache, vision changes, chest pain, shortness of breath, or weakness. Review of Systems Review of Systems Constitutional: Denies fever or chills [] Eyes: Denies change in visual acuity, redness, or eye pain [] HENT: Denies nasal congestion or sore throat [] Respiratory: Denies cough or shortness of breath [] Cardiovascular: No additional information not addressed in HPI [] GI: Denies abdominal pain, nausea, vomiting, bloody stools or diarrhea [] : Denies dysuria or hematuria [] Musculoskeletal: Denies back pain or joint pain [] Integument: Complains of abscess. Denies rash or skin lesions [] Neurologic: Denies headache, focal weakness or sensory changes [] Endocrine: Denies polyuria or polydipsia [] Current Medications Current Medications Current Medications Medications (Trade) Dose Ordered Sig/Nava Start Time Stop Time Status Last Admin Dose Admin Lidocaine HCl 20 ml 1X ONCE 08/04/17 21:00 08/04/17 21:01 DC 08/04/17 20:41 20 ML Allergies Allergies Allergies Coded Allergies Type Severity Reaction Last Updated Verified Iodinated Contrast- Oral and IV Dye Allergy Intermediate Rash 05/01/16 Yes Penicillins Allergy Intermediate unknown 05/01/16 Yes sevoflurane Adverse Reaction Unknown GAS ANESTHETIC - NAUSEA 07/02/17 No Physical Exam Physical Exam Constitutional: Well developed, well nourished, no acute distress, non-toxic appearance. [] HENT: Normocephalic, atraumatic, bilateral external ears normal, oropharynx moist, no oral exudates, nose normal. [] Eyes: PERRLA, EOMI, conjunctiva normal, no discharge. [] Neck: Normal range of motion, no tenderness, supple, no stridor. [] Cardiovascular:Heart rate regular rhythm, no murmur [] Lungs & Thorax: Bilateral breath sounds clear to auscultation [] Abdomen: Bowel sounds normal, soft, no tenderness, no masses, no pulsatile masses. [] Skin: Warm, dry, no erythema, no rash. 2x2 CM ABSCESS TO LEFT INNER THIGH. [] Back: No tenderness, no CVA tenderness. [] Extremities: No tenderness, no cyanosis, no clubbing, ROM intact, no edema. [] Neurologic: Alert and oriented X 3, normal motor function, normal sensory function, no focal deficits noted. [] Psychologic: Affect normal, judgement normal, mood normal. [] Current Patient Data Vital Signs Vital Signs Date Time Temp Pulse Resp B/P (MAP) Pulse Ox O2 Delivery O2 Flow Rate FiO2 08/04/17 20:01 98.1 128 20 99 Room Air 98.1 Lab Values Laboratory Tests Test 08/04/17 20:07 POC Urine HCG, Qualitative Hcg negative (Negative) EKG EKG [] Radiology/Procedures Radiology/Procedures [] Course & Med Decision Making Course & Med Decision Making Pertinent Labs and Imaging studies reviewed. (See chart for details) []Abscess incision and drainage completed. No complications. Tetanus up-to- date. Will discharge with Bactrim and Keflex which patient has taken in the past without problem. Patient requesting Diflucan prescription. Discussed follow -up for wound reevaluation in 3 days. Provided contact information/education. Discussed reasons to return to the ED. Patient understands and agrees with plan. Dragon Disclaimer Dragon Disclaimer This electronic medical record was generated, in whole or in part, using a voice recognition dictation system. Departure Departure Impression: Primary Impression: Abscess Disposition: 01 HOME, SELF-CARE Condition: IMPROVED Referrals: YAIMA MIRANDA MD (PCP) Patient Instructions: Abscess, Care After Scripts Tramadol Hcl (TRAMADOL HCL) 50 Mg Tablet 1 TAB PO PRN Q6HRS, #10 TAB Prov: SHEREEN LAWTON 08/04/17 Fluconazole (DIFLUCAN) 150 Mg Tablet 1 TAB PO ONCE, #2 TAB 1 Refill Prov: SHEREEN LAWTON 08/04/17 Cephalexin (KEFLEX) 500 Mg Capsule 1 CAP PO TID, #21 CAP Prov: SHEREEN LAWTON 08/04/17 Sulfamethoxazole/Trimethoprim (BACTRIM DS TABLET) 1 Each Tablet 1 TAB PO BID, #20 TAB Prov: SHEREEN LAWTON 08/04/17 Incision and Drainage Incision and Drainage : Site: LEFT INNER THIGH Blade Size: 11 I & D Procedure: betadine prep Progress Incision and drainage completed. No complications. Patient tolerated well. SHEREEN LAWTON Aug 04, 2017 20:36
[2017-08-04] MEDS ORDERED: LIDOCAINE 2% 20 ML VIAL. IJ ONE (21:00)
[2017-08-04] MEDS ORDERED: FLUC150T PO (21:01)
[2017-08-04] MEDS ORDERED: CEPH-264 PO (21:01)
[2017-08-04] MEDS ORDERED: TRAM50TA PO (21:13)
== END 2017-08-04 21:09 | disposition home or self-care (01) ==
LOC: ER 19:31
DX: L02.416 Cutaneous abscess of left lower limb (principal); I11.0 Hypertensive heart disease with heart failure; I50.9 Heart failure, unspecified; E11.9 Type 2 diabetes mellitus without complications; E03.9 Hypothyroidism, unspecified; Z86.73 Personal history of transient ischemic attack (TIA), and cerebral infarction without residual deficits; Z88.0 Allergy status to penicillin; Z86.718 Personal history of other venous thrombosis and embolism; Z91.041 Radiographic dye allergy status; Z88.8 Allergy status to other drugs, medicaments and biological substances
CPT/HCPCS: 10060; 81025; 99283-25; J2001

== ENCOUNTER 2018-11-14 03:27 | Emergency (ER) | payer OTHER ==
[~2018-11-14] VITALS: Ht 170.2 cm; Wt 104.3 kg
[~2018-11-14 03:27] MED LIST changes: +CEPH-264 PO; +FLUC150T PO; -METF-620 PO; +METF10007 PO; -OXYC-323 PO; +OXYC1TAB15 PO; +SULF1TAB24 PO; +TRAM50TA PO
[2018-11-14] MEDS ORDERED: NITROGLYCERIN SUBLINGUAL 0.4 MG BOTTLE OF 25. SL ONE (03:41)
[2018-11-14] MEDS ORDERED: FUROSEMIDE 20 MG/2 ML VIAL. ONE (03:42)
--- NOTE | 2018-11-14 03:42 | PHYS DOC ---
Past Medical History Past Medical History: CHF, Diabetes-Type II, Hypothyroid, Stroke Additional Past Medical Histor: DVT CVA 2010 CHF HTN DVT DM HYPOTHROID ECHO 2012 60% Past Surgical History: Appendectomy, Hysterectomy Alcohol Use: Occasionally Drug Use: None Adult General Chief Complaint Chief Complaint: CHEST PAIN HPI HPI Patient is a 48 year old female who complains of chest pain and shortness of breath. This started early this morning she woke up from sleep. No worse with exertion. Better with upright position, worse with laying down. Patient has swelling in her lower extremities but this is no worse than usual. Patient reports having something like this about a year and a half ago which was diagnosed as congestive heart failure. Patient did take 1 baby aspirin at home. No significant improvement with the baby aspirin. Denies any fever or cough. She notes that the discomfort radiates from the middle of her chest into bilateral shoulders and left arm.[] Review of Systems Review of Systems Constitutional: Denies fever or chills [] Eyes: Denies change in visual acuity, redness, or eye pain [] HENT: Denies nasal congestion or sore throat [] Respiratory: Denies cough, see history of present illness[] Cardiovascular: No additional information not addressed in HPI [] GI: Denies abdominal pain, nausea, vomiting, bloody stools or diarrhea [] : Denies dysuria or hematuria [] Musculoskeletal: Denies back pain or joint pain [] Integument: Denies rash or skin lesions [] Neurologic: Denies headache, focal weakness or sensory changes [] Endocrine: Denies polyuria or polydipsia [] All other systems were reviewed and found to be within normal limits, except as documented in this note. Current Medications Current Medications Current Medications Medications (Trade) Dose Ordered Sig/Nava Start Time Stop Time Status Last Admin Dose Admin Aspirin (Children'S Aspirin) 324 mg 1X ONCE 11/14/18 04:00 11/14/18 04:01 DC 11/14/18 03:55 324 MG Furosemide (Lasix) 20 mg STK-MED ONCE 11/14/18 03:42 11/14/18 03:44 DC Nitroglycerin (Nitro-Bid Oint) 0.5 inch 1X ONCE 11/14/18 04:30 11/14/18 04:31 DC Nitroglycerin (Nitrostat) 0.4 mg STK-MED ONCE 11/14/18 03:41 11/14/18 03:44 DC Allergies Allergies Allergies Coded Allergies Type Severity Reaction Last Updated Verified Iodinated Contrast- Oral and IV Dye Allergy Intermediate Rash 05/01/16 Yes Penicillins Allergy Intermediate unknown 05/01/16 Yes sevoflurane Adverse Reaction Unknown GAS ANESTHETIC - NAUSEA 07/02/17 No Physical Exam Physical Exam Constitutional: Well developed, well nourished, mild discomfort, non-toxic appearance. [] HENT: Normocephalic, atraumatic, bilateral external ears normal, oropharynx moist, no oral exudates, nose normal. [] Eyes: PERRLA, EOMI, conjunctiva normal, no discharge. [] Neck: Normal range of motion, no tenderness, supple, no stridor. [] Cardiovascular:Heart rate is tachycardic in the low 100s with a regular rhythm, no murmur [] Lungs & Thorax: Bilateral breath sounds clear to auscultation [] Abdomen: Bowel sounds normal, soft, no tenderness, no masses, no pulsatile masses. [] Skin: Warm, dry, no erythema, no rash. [] Back: No tenderness, no CVA tenderness. [] Extremities: No tenderness, no cyanosis, no clubbing, ROM intact, pretibial edema is present bilaterally symmetric, 1+. [] Neurologic: Alert and oriented X 3, normal motor function, normal sensory function, no focal deficits noted. [] Psychologic: Affect normal, judgement normal, mood normal. [] Current Patient Data Vital Signs Vital Signs Date Time Temp Pulse Resp B/P (MAP) Pulse Ox O2 Delivery O2 Flow Rate FiO2 11/14/18 03:55 103 159/53 11/14/18 03:27 98.4 24 100 Room Air 98.4 Lab Values Laboratory Tests Test 11/14/18 03:37 11/14/18 04:07 White Blood Count 8.2 x10^3/uL (4.0-11.0) Red Blood Count 4.59 x10^6/uL (3.50-5.40) Hemoglobin 13.2 g/dL (12.0-15.5) Hematocrit 39.9 % (36.0-47.0) Mean Corpuscular Volume 87 fL (79-100) Mean Corpuscular Hemoglobin 29 pg (25-35) Mean Corpuscular Hemoglobin Concent 33 g/dL (31-37) Red Cell Distribution Width 14.7 % (11.5-14.5) H Platelet Count 209 x10^3/uL (140-400) Neutrophils (%) (Auto) 59 % (31-73) Lymphocytes (%) (Auto) 31 % (24-48) Monocytes (%) (Auto) 7 % (0-9) Eosinophils (%) (Auto) 3 % (0-3) Basophils (%) (Auto) 1 % (0-3) Neutrophils # (Auto) 4.8 x10^3uL (1.8-7.7) Lymphocytes # (Auto) 2.6 x10^3/uL (1.0-4.8) Monocytes # (Auto) 0.6 x10^3/uL (0.0-1.1) Eosinophils # (Auto) 0.2 x10^3/uL (0.0-0.7) Basophils # (Auto) 0.1 x10^3/uL (0.0-0.2) Prothrombin Time 13.1 SEC (11.7-14.0) Prothrombin Time INR 1.0 (0.8-1.1) D-Dimer (Donna) < 0.27 ug/mlFEU Sodium Level 142 mmol/L (136-145) Potassium Level 4.1 mmol/L (3.5-5.1) Chloride Level 102 mmol/L (98-107) Carbon Dioxide Level 28 mmol/L (21-32) Anion Gap 12 (6-14) Blood Urea Nitrogen 20 mg/dL (7-20) Creatinine 1.2 mg/dL (0.6-1.0) H Estimated GFR (Cockcroft-Gault) 58.5 BUN/Creatinine Ratio 17 (6-20) Glucose Level 167 mg/dL (70-99) H Calcium Level 9.8 mg/dL (8.5-10.1) Magnesium Level 2.1 mg/dL (1.8-2.4) Total Bilirubin 0.5 mg/dL (0.2-1.0) Aspartate Amino Transferase (AST) 18 U/L (15-37) Alanine Aminotransferase (ALT) 26 U/L (14-59) Alkaline Phosphatase 80 U/L (46-116) Troponin I Quantitative < 0.017 ng/mL (0.000-0.055) DA-Vhp-V-Type Natriuretic Peptide 26 pg/mL (0-124) Total Protein 8.4 g/dL (6.4-8.2) H Albumin 4.4 g/dL (3.4-5.0) Albumin/Globulin Ratio 1.1 (1.0-1.7) Lipase 154 U/L (73-393) Thyroid Stimulating Hormone (TSH) 38.792 uIU/mL (0.358-3.74) H Urine Collection Type Unknown Urine Color Yellow Urine Clarity Clear Urine pH 6.0 Urine Specific Page 1.015 Urine Protein Negative mg/dL (NEG-TRACE) Urine Glucose (UA) Negative mg/dL (NEG) Urine Ketones (Stick) Negative mg/dL (NEG) Urine Blood Negative (NEG) Urine Nitrite Negative (NEG) Urine Bilirubin Negative (NEG) Urine Urobilinogen Dipstick 0.2 mg/dL (0.2 mg/dL) Urine Leukocyte Esterase Negative (NEG) Urine RBC 0 /HPF (0-2) Urine WBC Occ /HPF (0-4) Urine Squamous Epithelial Cells Few /LPF Urine Bacteria Few /HPF (0-FEW) Urine Mucus Slight /LPF Urine Opiates Screen Neg (NEG) Urine Methadone Screen Neg (NEG) Urine Barbiturates Neg (NEG) Urine Phencyclidine Screen Neg (NEG) Urine Amphetamine/Methamphetamine Neg (NEG) Urine Benzodiazepines Screen Neg (NEG) Urine Cocaine Screen Neg (NEG) Urine Cannabinoids Screen Neg (NEG) Urine Ethyl Alcohol Neg (NEG) Laboratory Tests 11/14/18 03:37 Laboratory Tests 11/14/18 03:37 EKG EKG EKG shows a sinus tachycardia at 106 bpm, left axis, normal QTC at 472 ms, no ST elevations, no acute changes compared with EKG of 07/01/2017 other than the right. EKG interpreted by me at 0 3:30[] Radiology/Procedures Radiology/Procedures Chest x-ray shows no infiltrate, no effusion, no pneumothorax[] Course & Med Decision Making Course & Med Decision Making Pertinent Labs and Imaging studies reviewed. (See chart for details) Medical decision making: Patient with chest pain and tachycardia and shortness of breath, concerned about pulmonary embolism however her d-dimer was negative. Also concerned about acute coronary syndrome, her first set of enzymes or negative and her the N PE likewise was negative. No evidence of pneumonia or pneumothorax on chest x-ray. No evidence of thoracic aneurysm, no evidence of esophageal rupture by history. ED course: Patient arrived, his placed in bed, tolerated exam well. Given patient's history of previous CHF with similar symptoms she was given nitroglycerin as well as Lasix which improved her symptoms. On discussing laboratory and imaging findings and need for admission with the patient, she refuses admission. She was able to state the risks in her own words to include or permanent disability. Patient appears able to make an informed decision. Patient was discharged AGAINST MEDICAL ADVICE after being informed that she could return at any time.[] Dragon Disclaimer Dragon Disclaimer This electronic medical record was generated, in whole or in part, using a voice recognition dictation system. Departure Departure Impression: Primary Impression: Chest pain Disposition: AGAINST MEDICAL ADVICE Condition: IMPROVED Referrals: YAIMA MIRANDA MD (PCP) Follow-up in 2 days Patient Instructions: Chest Pain (Nonspecific), Discharge Against Medical Advice Additional Instructions: Follow-up with your regular doctor in 2 days. Just because you're leaving AGAINST MEDICAL ADVICE does not mean you're not welcome to return back to the emergency department if you develop recurrence of chest pain, difficulty breathing, or any other concerns. Scripts Nitroglycerin (NITROGLYCERIN SubLingual) 0.4 Mg Tab.subl 1 TAB SL UD, #25 TAB 0 Refills Prov: ROSALIA RAMÍREZ DO 11/14/18 Problem Qualifiers Primary Impression: Chest pain Chest pain type: unspecified Qualified Codes: R07.9 - Chest pain, unspecified ROSALIA RAMÍREZ DO Nov 14, 2018 03:42
[2018-11-14] MEDS ORDERED: NITROGLYCERIN SUBLINGUAL 0.4 MG BOTTLE OF 25. SL PRN (03:45)
[2018-11-14 03:48] LABS: BASO # 0.1 x10^3/uL (0.0-0.2); BASO % 1 % (0-3); EOS # 0.2 x10^3/uL (0.0-0.7); EOS % 3 % (0-3); HEMATOCRIT 39.9 % (36.0-47.0); HEMOGLOBIN 13.2 g/dL (12.0-15.5); LYMPH # 2.6 x10^3/uL (1.0-4.8); LYMPH % 31 % (24-48); MEAN CORPUSCULAR HEMOGLOBIN 29 pg (25-35); MEAN CORPUSCULAR HGB CONC 33 g/dL (31-37); MEAN CORPUSCULAR VOLUME 87 fL (79-100); MONO # 0.6 x10^3/uL (0.0-1.1); MONO % 7 % (0-9); NEUT # 4.8 x10^3uL (1.8-7.7); NEUT % 59 % (31-73); PLATELET COUNT 209 x10^3/uL (140-400); RED BLOOD COUNT 4.59 x10^6/uL (3.50-5.40); RED CELL DISTRIBUTION WIDTH 14.7 % (11.5-14.5); WHITE BLOOD COUNT 8.2 x10^3/uL (4.0-11.0)
[2018-11-14 03:55] LABS: PROTHROMBIN TIME PATIENT 13.1 SEC (11.7-14.0)
[2018-11-14 03:57] LABS: CALCIUM 9.8 mg/dL (8.5-10.1); CREATININE 1.2 mg/dL (0.6-1.0); GFR 58.5; POTASSIUM 4.1 mmol/L (3.5-5.1)
[2018-11-14 03:58] LABS: D-DIMER < 0.27 ug/mlFEU (0.00-0.50)
[2018-11-14] MEDS ORDERED: ASPIRIN CHEWABLE 81 MG TABLET. PO ONE (04:00)
[2018-11-14] MEDS ORDERED: FUROSEMIDE 20 MG/2 ML VIAL. IV ONE (04:00)
[2018-11-14 04:04] LABS: ALBUMIN 4.4 g/dL (3.4-5.0); ALBUMIN/GLOBULIN RATIO 1.1 (1.0-1.7); MAGNESIUM 2.1 mg/dL (1.8-2.4); TOTAL BILIRUBIN 0.5 mg/dL (0.2-1.0); TOTAL PROTEIN 8.4 g/dL (6.4-8.2)
[2018-11-14 04:18] LABS: BILIRUBIN,URINE NEGATIVE (NEG); CLARITY,URINE CLEAR; COLOR,URINE YELLOW; NITRITE,URINE NEGATIVE (NEG); PROTEIN,URINE NEGATIVE (NEG-TRACE); UROBILINOGEN,URINE 0.2 mg/dL (0.2 mg/dL)
[2018-11-14 04:24] LABS: BARBITURATES NEG (NEG); BENZODIAZEPINES NEG (NEG); CANNABINOIDS NEG (NEG); COCAINE NEG (NEG); METHADONE NEG (NEG); OPIATES NEG (NEG); PHENCYCLIDINE NEG (NEG)
[2018-11-14 04:25] LABS: BACTERIA,URINE FEW /HPF (0-FEW); RBC,URINE 0 /HPF (0-2); SQUAMOUS EPITHELIAL CELL,UR FEW /LPF; WBC,URINE OCC /HPF (0-4)
[2018-11-14 04:26] LABS: AMPHETAMINE/METHAMPHETAMINE NEG (NEG)
[2018-11-14] MEDS ORDERED: NITROGLYCERIN OINT 1 GM PACKET. TP ONE (04:30)
[2018-11-14 04:45] VITALS: BP 115/78
--- NOTE | 2018-11-14 04:45 | RAD ---
EXAM: CHEST 1 VIEW. HISTORY: Chest pain, shortness of breath. COMPARISON: 07/01/2017. FINDINGS: A frontal view of the chest is obtained. There are no confluent infiltrates. There is no pneumothorax or pleural effusion. The heart is not enlarged. IMPRESSION: 1. No confluent infiltrates. Electronically signed by: Surjit Chambers MD (11/14/2018 4:40 AM) [id number]
[2018-11-14] MEDS ORDERED: NITR0.4T22 SL (04:52)
--- NOTE | 2018-11-14 07:45 | EKG ---
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
== END 2018-11-14 04:55 | disposition left against medical advice (07) ==
LOC: ER 03:27
DX: R07.89 Other chest pain (principal); R06.02 Shortness of breath; R00.0 Tachycardia, unspecified; E11.9 Type 2 diabetes mellitus without complications; I11.0 Hypertensive heart disease with heart failure; I50.9 Heart failure, unspecified; E03.9 Hypothyroidism, unspecified; Z86.718 Personal history of other venous thrombosis and embolism; Z86.73 Personal history of transient ischemic attack (TIA), and cerebral infarction without residual deficits; Z90.89 Acquired absence of other organs; Z90.710 Acquired absence of both cervix and uterus; Z88.6 Allergy status to analgesic agent; Z88.8 Allergy status to other drugs, medicaments and biological substances; Z91.041 Radiographic dye allergy status
CPT/HCPCS: 36415; 71045; 80053; 80307; 81001; 83690; 83735; 83880; 84443; 84484; 85025; 85379; 85610; 93005; 96374; 99284; J1940

== ENCOUNTER 2019-04-26 18:30 | Emergency (ER) | payer OTHER ==
[~2019-04-26] VITALS: Ht 170.2 cm; Wt 100.2 kg
[~2019-04-26 18:30] MED LIST changes: +CLIN300C8 PO; +LIDO700A21 TD; -LIDO700A39 TD; +NITR0.4T22 SL; +PRED50TA PO
[2019-04-26 18:44] VITALS: BP 145/70
[2019-04-26] MEDS ORDERED: ALBUTEROL SULFATE 2.5 MG/3 ML NEBU. NEB ONE (19:30)
[2019-04-26] MEDS ORDERED: ALBU2.5V8 INH (20:10)
[2019-04-26] MEDS ORDERED: SULF1TAB24 PO (20:10)
--- NOTE | 2019-04-26 20:10 | PHYS DOC ---
Past Medical History Past Medical History: CHF, Diabetes-Type II, Hypothyroid, Stroke Additional Past Medical Histor: DVT CVA 2010 CHF HTN DVT DM HYPOTHROID ECHO 04/2013 60%,LUPUS (THANIA BROWN APRN) Past Surgical History: Appendectomy, Hysterectomy (THANIA BROWN APRN) Alcohol Use: Occasionally Drug Use: None (THANIA BROWN APRN) Adult General Chief Complaint Chief Complaint: ABSCESS HPI HPI Patient is a 49 year old AA female who presents to the emergency department with complaints of redness, warmth, swelling, and tenderness to her medial right breast that began 2 days ago. She denies any drainage, or bleeding from the site. She states she has a history of abscesses and gets them frequently these symptoms are similar to previous abscesses. In addition, patient presents with complaints of a continued dry cough that has been persistent for the last 7 weeks. She denies any fever, sore throat, ear pain, shortness of breath, chest pain, abdominal pain on the nausea, vomiting, or diarrhea. Currently she rates t he pain in her right breast a 10 out of 10 on pain scale, there are no alleviating or exacerbating factors. The patient has been applying moist compresses to the area with no relief in her symptoms. (THANIA BROWN APRN) Review of Systems Review of Systems Constitutional: Denies fever or chills [] Eyes: Denies redness, or eye pain [] HENT: Denies nasal congestion or sore throat [] Respiratory: see HPI Cardiovascular: No additional information not addressed in HPI [] GI: Denies abdominal pain, nausea, vomiting, or diarrhea [] : Denies dysuria or hematuria [] Musculoskeletal: Denies back pain or joint pain [] Integument: see HPI Neurologic: Denies headache, focal weakness or sensory changes [] Complete systems were reviewed and found to be within normal limits, except as documented in this note. (THANIA BROWN APRN) Current Medications Current Medications Current Medications Medications (Trade) Dose Ordered Sig/Nava Start Time Stop Time Status Last Admin Dose Admin Albuterol Sulfate (Ventolin Neb Soln) 2.5 mg 1X ONCE 04/26/19 19:30 04/26/19 19:31 DC 04/26/19 19:43 2.5 MG (SKYLER GUY DO) Allergies Allergies Allergies Coded Allergies Type Severity Reaction Last Updated Verified Iodinated Contrast- Oral and IV Dye Allergy Intermediate Rash 05/01/16 Yes Penicillins Allergy Intermediate unknown 05/01/16 Yes sevoflurane Adverse Reaction Unknown GAS ANESTHETIC - NAUSEA 07/02/17 No (SKYLER GUY DO) Physical Exam Physical Exam Constitutional: Well developed, well nourished, no acute distress, non-toxic appearance, obese. [] HENT: Normocephalic, atraumatic, bilateral external ears normal, nose normal. [] Eyes: conjunctiva normal, no discharge. [] Neck: Normal range of motion, no stridor. [] Cardiovascular:Heart rate regular rhythm, no murmur [] Lungs & Thorax: Bilateral breath sounds clear to auscultation [] Skin: Warm, dry; 6 cm erythremic, indurated area noted to medial right breast located at 7 o'clock, no fluctuance, no pustule, no drainage Extremities: No cyanosis, ROM intact, no edema. [] Neurologic: Alert and oriented X 3, no focal deficits noted. [] Psychologic: Affect normal, judgement normal, mood normal. [] (THANIA BROWN APRN) Current Patient Data Vital Signs Vital Signs Date Time Temp Pulse Resp B/P (MAP) Pulse Ox O2 Delivery O2 Flow Rate FiO2 04/26/19 19:43 98 Room Air 04/26/19 18:44 99.0 120 18 145/70 (95) 99.0 (SKYLER GUY DO) EKG EKG [] (THANIA BROWN APRN) Radiology/Procedures Radiology/Procedures CXR no acute findings or infiltrate read by Dr. Guy[] (THANIA BROWN APRN) Course & Med Decision Making Course & Med Decision Making Pertinent Labs and Imaging studies reviewed. (See chart for details) dx: R breast cellulitis, cough Chest x-ray revealed no acute findings as read by Dr. Guy. Patient was given albuterol nebulizer treatment in the emergency department, her coughing decreased after that time and patient reported feeling better. We'll prescribe Bactrim DS 2 tablets by mouth twice a day 10 days for treatment of cellulitis and an albuterol MDI for cough. Patient encouraged to continue application of warm moist compresses. Return to the emergency room if fever develops or symptoms worsen. Patient verbalized an understanding of home care, medications, follow-up, and return to ED instructions and was in agreement with the plan of care. [] (THANIA BROWN APRN) Dragon Disclaimer Dragon Disclaimer This electronic medical record was generated, in whole or in part, using a voice recognition dictation system. (THANIA BROWN APRN) Departure Departure Impression: Primary Impression: Cough Additional Impressions: Cellulitis of right breast Bronchospasm, acute Disposition: HOME, SELF-CARE Condition: STABLE Referrals: NO PCP (PCP) Patient Instructions: Bronchospasm, Adult, Cellulitis, [id number] Additional Instructions: Fill the prescriptions and use as directed. Avoid exposure to airway irritants such as perfumes, detergents, smoke, and dust. Follow-up with your primary care doctor if symptoms persist, return to the ER if symptoms worsen. 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 I was available for consultation as needed during the patient's visit in the emergency department. I agree with the clinical impression, plan, and disposition. (SKYLER GUY DO) Problem Qualifiers THANIA BROWN APRN Apr 26, 2019 20:10 SKYLER GUY DO May 02, 2019 00:04
[2019-04-26] MEDS ORDERED: HYDR-2761 PO (20:16)
--- NOTE | 2019-04-27 05:12 | RAD ---
PA and lateral chest radiographs 04/26/2019 CLINICAL HISTORY: Cough for 7 weeks. PA and lateral digital radiographs of chest were obtained. Comparison study is dated 11/14/2018. The cardiac silhouette is normal in size. The thoracic aorta is mildly tortuous. No acute pulmonary infiltrate is seen. No pleural effusion or pneumothorax is noted. The osseous structures are unchanged. IMPRESSION: No acute abnormality is seen. Electronically signed by: Frank Braxton MD (04/27/2019 5:09 AM) [id number]
== END 2019-04-26 20:20 | disposition home or self-care (01) ==
LOC: ER 18:30
DX: J98.01 Acute bronchospasm (principal); N61.0 Mastitis without abscess; I11.0 Hypertensive heart disease with heart failure; I50.9 Heart failure, unspecified; E11.9 Type 2 diabetes mellitus without complications; E03.9 Hypothyroidism, unspecified; Z86.73 Personal history of transient ischemic attack (TIA), and cerebral infarction without residual deficits; Z86.718 Personal history of other venous thrombosis and embolism; Z90.89 Acquired absence of other organs; Z90.710 Acquired absence of both cervix and uterus; Z88.0 Allergy status to penicillin; Z88.8 Allergy status to other drugs, medicaments and biological substances; Z91.041 Radiographic dye allergy status
CPT/HCPCS: 71046; 94640; 99284; J7613

== ENCOUNTER 2021-04-30 10:06 | Emergency (ER) | payer OTHER ==
[~2021-04-30] VITALS: Ht 170.2 cm; Wt 104.7 kg
[~2021-04-30 10:06] MED LIST changes: +ALBU2.5V8 INH; -CLIN300C8 PO; +CLIN300C9 PO; +HYDR-2761 PO; +LEVO-101 PO; -LEVO100T PO; +SIMV10TA15 PO; -SIMV10TA3 PO; +SIMV20TA18 PO; -SIMV20TA3 PO
[2021-04-30] MEDS ORDERED: IV NORMAL SALINE 1000ML BAG 1,000 ML IV SCH (11:45)
[2021-04-30] MEDS ORDERED: fentaNYL PF VIAL 100 MCG/2 ML VIAL IVP ONE (11:45)
[2021-04-30 12:00] LABS: BILIRUBIN,URINE NEGATIVE (NEG); CLARITY,URINE CLEAR; COLOR,URINE YELLOW; NITRITE,URINE NEGATIVE (NEG); PROTEIN,URINE NEGATIVE (NEG-TRACE); UROBILINOGEN,URINE 0.2 mg/dL (0.2 mg/dL)
--- NOTE | 2021-04-30 12:28 | RAD ---
XR CHEST 1V History: Reason: LEFT FLANK PAIN, SOA, HX PE / Spl. Instructions: / History: Comparison: April 26, 2019 Findings: No consolidation or pleural effusion. Normal heart size. No pneumothorax. Impression: 1. No acute cardiopulmonary process. Electronically signed by: Wilson Rodriguez DO (04/30/2021 12:26 PM) [id number]
[2021-04-30 12:31] LABS: BACTERIA,URINE FEW /HPF (0-FEW); RBC,URINE 0 /HPF (0-2); WBC,URINE 0 /HPF (0-4)
[2021-04-30 12:41] LABS: BASO # 0.1 x10^3/uL (0.0-0.2); BASO % 1 % (0-3); EOS # 0.2 x10^3/uL (0.0-0.7); EOS % 4 % (0-3); HEMATOCRIT 42.8 % (36.0-47.0); HEMOGLOBIN 14.3 g/dL (12.0-15.5); LYMPH % 35 % (24-48); MEAN CORPUSCULAR HEMOGLOBIN 28 pg (25-35); MEAN CORPUSCULAR HGB CONC 33 g/dL (31-37); MEAN CORPUSCULAR VOLUME 84 fL (79-100); MONO # 0.5 x10^3/uL (0.0-1.1); MONO % 8 % (0-9); NEUT % 52 % (31-73); PLATELET COUNT 224 x10^3/uL (140-400); RED BLOOD COUNT 5.13 x10^6/uL (3.50-5.40); RED CELL DISTRIBUTION WIDTH 15.3 % (11.5-14.5); WHITE BLOOD COUNT 5.8 x10^3/uL (4.0-11.0)
--- NOTE | 2021-04-30 12:43 | PHYS DOC ---
Past Medical History Past Medical History: CHF, Diabetes-Type II, Hypothyroid, Stroke Additional Past Medical Histor: DVT CVA 2010 CHF HTN DVT DM HYPOTHROID ECHO 04/2013 60%,LUPUS Past Surgical History: Appendectomy, Hysterectomy Smoking Status: Never Smoker Alcohol Use: Occasionally Drug Use: None General Adult EDM: Chief Complaint: BACK PAIN - NO INJURY HPI: HPI: Patient is a 51 year old female who presents with since Thursday she has been having left flank pain that is in the shoulder blade area that is a stabbing 10 out of 10. She denies any kind of injury or doing anything out of the ordinary. She states it just hurts and she cannot get comfortable. Nothing makes it worse or better. She says when she is up and moving she does feel short of breath. She states that it feels like the pain is almost radiating through to the chest area. She is not currently on any blood thinners and she states that she cannot take aspirin because she is allergic to it. She states that if she has to have aspirin or contrast she needs to take Benadryl with it. Patient has a history of DVT, CVA, appendectomy, hysterectomy, hypothyroidism, CHF, diabetes, hypertension, lupus. Review of Systems: Review of Systems: Constitutional: Denies fever or chills. [] Eyes: Denies change in visual acuity. [] HENT: Denies nasal congestion or sore throat. [] Respiratory: Denies cough or +shortness of breath. [] Cardiovascular: + chest pain or denies edema. [] GI: Denies abdominal pain, nausea, vomiting, bloody stools or diarrhea. [] : Denies dysuria. [] Musculoskeletal: +Left shoulder blade back pain or denies joint pain. [] Integument: Denies rash. [] Neurologic: Denies headache, focal weakness or sensory changes. [] Endocrine: Denies polyuria or polydipsia. [] Lymphatic: Denies swollen glands. [] Psychiatric: Denies depression or anxiety. [] Heart Score: C/O Chest Pain: Yes HEART Score for Chest Pain: HEART Score for Chest Pain Response (Comments) Value History Slighlty/Non-Suspicious 0 ECG Nonspecific Repolarizatio 1 Age >45 - < 65 1 Risk Factors >3 Risk Factors or Hx CAD 2 Troponin < Normal Limit 0 Total 4 Risk Factors: Risk Factors: DM, Current or recent (<one month) smoker, HTN, HLP, family history of CAD, obesity. Risk Scores: Score 0 - 3: 2.5% MACE over next 6 weeks - Discharge Home Score 4 - 6: 20.3% MACE over next 6 weeks - Admit for Clinical Observation Score 7 - 10: 72.7% MACE over next 6 weeks - Early Invasive Strategies Current Medications: Current Medications Medications (Trade) Dose Ordered Sig/Nava Start Time Stop Time Status Last Admin Dose Admin Fentanyl Citrate (Fentanyl 2ml Vial) 50 mcg 1X ONCE 04/30/21 11:45 04/30/21 11:50 DC Sodium Chloride 1,000 ml @ 1,000 mls/hr Q1H 04/30/21 11:45 04/30/21 12:44 Allergies: Allergies: Allergies Coded Allergies Type Severity Reaction Last Updated Verified Iodinated Contrast Media Allergy Intermediate Rash 05/01/16 Yes Penicillins Allergy Intermediate unknown 05/01/16 Yes sevoflurane Adverse Reaction Unknown GAS ANESTHETIC - NAUSEA 07/02/17 No Physical Exam: PE: Constitutional: Well developed, well nourished, no acute distress, non-toxic appearance. [] HENT: Normocephalic, atraumatic, bilateral external ears normal, oropharynx moist, no oral exudates, nose normal. [] Eyes: PERRLA, EOMI, conjunctiva normal, no discharge. [] Neck: Normal range of motion, no tenderness, supple, no stridor. [] Cardiovascular:Heart rate regular rhythm, no murmur [] Lungs & Thorax: Bilateral breath sounds clear to auscultation [] Abdomen: Bowel sounds normal, soft, no tenderness, no masses, no pulsatile rudy s. [] Skin: Warm, dry, no erythema, no rash. [] Back: left paraspinal at scapula tenderness, no CVA tenderness. [] Extremities: No tenderness, no cyanosis, no clubbing, ROM intact, no edema. [] Neurologic: Alert and oriented X 3, normal motor function, normal sensory function, no focal deficits noted. [] Psychologic: Affect normal, judgement normal, mood normal. [] Current Patient Data: Vital Signs: Vital Signs Date Time Temp Pulse Resp B/P (MAP) Pulse Ox O2 Delivery O2 Flow Rate FiO2 04/30/21 11:24 97.1 97 18 183/91 (95) 99 Room Air 97.1 EKG: EK:[address] Santana as sinus rhythm with LVH but no STEMI. Radiology/Procedures: Radiology/Procedures: [] Impression: [id number] [place] [address] IMAGING REPORT Signed PATIENT: JOYCELYN MENDOZAACCOUNT: [id number] : 1970 LOCATION: ER AGE: 51 SEX: F EXAM STATUS: REG ER ORD. PHYSICIAN: ELLEN BECK APRN REASON: LEFT FLANK PAIN, SOA, HX PE PROCEDURE: PORTABLE CHEST 1V XR CHEST 1V History: Reason: LEFT FLANK PAIN, SOA, HX PE / Spl. Instructions: / History: Comparison: April 26, 2019 Findings: No consolidation or pleural effusion. Normal heart size. No pneumothorax. Impression: 1. No acute cardiopulmonary process. Electronically signed by: Wilson Rodriguez DO (04/30/2021 12:26 PM) [id number] DICTATED and SIGNED BY: WILSON RODRIGUEZ DO DATE: 04/30/21 [id number] [facility] [address] [place] [address] IMAGING REPORT Signed PATIENT: JOYCELYN MENDOZAACCOUNT: [id number] : 1970 LOCATION: ER AGE: 51 SEX: F EXAM STATUS: REG ER ORD. PHYSICIAN: ELLEN BECK APRN REASON: LEFT FLANK PAIN PROCEDURE: CT ABDOMEN PELVIS WO CONTRAST Examination: CT abdomen pelvis without contrast HISTORY: History of left flank pain COMPARISON: None available TECHNIQUE: Axial CT images of the abdomen pelvis were performed without contrast. Coronal and sagittal reformats are performed Exposure: One or more of the following individualized dose reduction techniques were utilized for this examination: 1. Automated exposure control 2. Adjustment of the mA and/or kV according to patient size 3. Use of iterative reconstruction technique FINDINGS: The bibasilar lungs are clear. No evidence of free air identified in the abdomen. Diffuse decreased attenuation noted in the liver likely hepatic steatosis. The spleen, adrenals grossly appears unremarkable. The gallbladder is mildly distended. The stomach is mildly distended. The visualized pancreas grossly appears unremarkable. The small bowel is nondilated. Feces and gas identified in the colon. The appendix is not identified. No acute intrarenal collecting system calculi or hydronephrosis. No evidence of lytic bony destructive lesion. IMPRESSION: 1. No evidence of intrarenal collecting system calculi or hydronephrosis. 2. Hepatic steatosis. Electronically signed by: Ryan Deluca MD (04/30/2021 12:48 PM) [id number] DICTATED and SIGNED BY: RYAN DELUCA MD DATE: 04/30/21 [id number] 0 Course & Med Decision Making: Course & Med Decision Making Pertinent Labs and Imaging studies reviewed. (See chart for details) See HPI. Alert and oriented x4. Speaks in full clear sentences. Ambulatory with steady gait. Tenderness to the left paraspinal area to the side of the scapula. Lungs are clear all station all lobes. Vital signs within normal limits. Afebrile. Abdominal soft and nontender. CT abdomen and pelvis show no acute findings. Chest x-ray shows no acute findings. Blood work shows no acute findings. Patient states the fentanyl is helping her back. Patient will be given Norflex. D-dimer is normal. I have spoken to Dr. Santana concerning this patient and care plan. Patient will get 1 more troponin level at 1430. [] Molina Disclaimer: Molina Disclaimer: This electronic medical record was generated, in whole or in part, using a voice recognition dictation system. Departure Departure Impression: Primary Impression: Back pain Qualified Codes: M54.6 - Pain in thoracic spine Disposition: HOME / SELF CARE / HOMELESS Condition: STABLE Referrals: UNKNOWN PCP NAME (PCP) Patient Instructions: Back Pain, Adult, [id number], Muscle Strain Additional Instructions: Follow-up with primary care provider. Take medication as prescribed and with food. Remember the medications will make you sleepy. Do not drive or drink any alcohol with these medications. If pain worsens, you have chest pain or shortness of breath return emergency room. Scripts Hydrocodone Bit/Acetaminophen (HYDROCODONE-APAP 5-325 ) 1 Tab Tablet 1 TAB PO PRN Q6HRS PRN for PAIN, #10 TAB 0 Refills Prov: ELLEN BECK APRN 04/30/21 Orphenadrine Citrate (ORPHENADRINE CITRATE) 100 Mg Tablet.er 1 TAB PO BID, #60 TAB Prov: ELLEN BECK APRN 04/30/21 ELLEN BECK APRN Apr 30, 2021 12:43
--- NOTE | 2021-04-30 12:51 | RAD ---
Examination: CT abdomen pelvis without contrast HISTORY: History of left flank pain COMPARISON: None available TECHNIQUE: Axial CT images of the abdomen pelvis were performed without contrast. Coronal and sagitta l reformats are performed Exposure: One or more of the following individualized dose reduction techniques were utilized for thi s examination: 1. Automated exposure control 2. Adjustment of the mA and/or kV according to patient size 3. Use of iterative reconstruction technique FINDINGS: The bibasilar lungs are clear. No evidence of free air identified in the abdomen. Diffuse decreased a ttenuation noted in the liver likely hepatic steatosis. The spleen, adrenals grossly appears unremark able. The gallbladder is mildly distended. The stomach is mildly distended. The visualized pancreas g rossly appears unremarkable. The small bowel is nondilated. Feces and gas identified in the colon. Th e appendix is not identified. No acute intrarenal collecting system calculi or hydronephrosis. No evidence of lytic bony destructiv e lesion. IMPRESSION: 1. No evidence of intrarenal collecting system calculi or hydronephrosis. 2. Hepatic steatosis. Electronically signed by: Ryan Terry MD (04/30/2021 12:48 PM) [id number]
[2021-04-30 12:54] LABS: CALCIUM 9.6 mg/dL (8.5-10.1); CREATININE 0.9 mg/dL (0.6-1.0); GFR 80.5; POTASSIUM 4.7 mmol/L (3.5-5.1)
[2021-04-30 13:00] LABS: ALBUMIN 4.3 g/dL (3.4-5.0); ALBUMIN/GLOBULIN RATIO 1.1 (1.0-1.7); TOTAL BILIRUBIN 0.6 mg/dL (0.2-1.0); TOTAL PROTEIN 8.2 g/dL (6.4-8.2)
[2021-04-30] MEDS ORDERED: ORPHENADRINE CITRATE 60 MG/2 ML VIAL. IV ONE (13:30)
[2021-04-30] MEDS ORDERED: ORPH100T PO (13:35)
[2021-04-30] MEDS ORDERED: HYDR-2761 PO ×2 (13:37→15:23)
[2021-04-30] MEDS ORDERED: HYDR-2759 PO (13:51)
[2021-04-30 15:40] VITALS: BP 176/84
--- NOTE | 2021-04-30 16:35 | EKG ---
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
== END 2021-04-30 15:40 | disposition home or self-care (01) ==
LOC: ER 10:06
DX: M54.6 Pain in thoracic spine (principal); R06.02 Shortness of breath; E03.9 Hypothyroidism, unspecified; I11.0 Hypertensive heart disease with heart failure; I50.9 Heart failure, unspecified; E11.9 Type 2 diabetes mellitus without complications; Z86.73 Personal history of transient ischemic attack (TIA), and cerebral infarction without residual deficits; Z86.718 Personal history of other venous thrombosis and embolism; Z90.89 Acquired absence of other organs; Z90.710 Acquired absence of both cervix and uterus; Z88.0 Allergy status to penicillin; Z91.041 Radiographic dye allergy status; Z88.8 Allergy status to other drugs, medicaments and biological substances
CPT/HCPCS: 36415; 71045; 74176; 80053; 81001; 83690; 84484; 85025; 85379; 93005; 96361; 96374; 96375; 99285; J2360; J3010; J7030

== ENCOUNTER 2021-12-31 09:36 | Emergency (ER) | payer OTHER ==
[~2021-12-31] VITALS: Ht 170.2 cm; Wt 105.5 kg
[~2021-12-31 09:36] MED LIST changes: +CLIN-94 PO; -CLIN300C9 PO; +CYCL10TA19 PO; -CYCL10TA2 PO; +HYDR-2759 PO; -LISI2.5T PO; +LISI2.5T12 PO; +ORPH100T PO
[2021-12-31 09:45] VITALS: BP 164/85
--- NOTE | 2021-12-31 10:12 | PHYS DOC ---
Past Medical History Past Medical History: CHF, CVA, Diabetes-Type II, DVT, Hypertension, Hypo thyroid, Stroke Additional Past Medical Histor: ECHO 04/2013 60%,LUPUS Past Surgical History: Appendectomy, Hysterectomy Smoking Status: Never Smoker Alcohol Use: Occasionally Drug Use: None General Adult EDM: Chief Complaint: ABDOMINAL PAIN HPI: HPI: Patient is a 51-year-old female that presents today with left lower chest wall pain. Patient states that last Thursday she was helping move a refrigerator and she felt a pop in her left chest wall area and since that time she has felt a bump underneath her left breast and had pain in that area with any kind of movement. Patient states that she has taken Tylenol for the pain which has not been helping, she did take a dose of ibuprofen yesterday which did help somewhat but she is here today for further evaluation of this. Review of Systems: Review of Systems: Constitutional: Denies fever or chills. [] Eyes: Denies change in visual acuity. [] HENT: Denies nasal congestion or sore throat. [] Respiratory: Left chest wall pain Cardiovascular: Denies chest pain or edema. [] GI: Denies abdominal pain, nausea, vomiting, bloody stools or diarrhea. [] : Denies dysuria. [] Musculoskeletal: Denies back pain or joint pain. [] Integument: Denies rash. [] Neurologic: Denies headache, focal weakness or sensory changes. [] Endocrine: Denies polyuria or polydipsia. [] Lymphatic: Denies swollen glands. [] Psychiatric: Denies depression or anxiety. [] Heart Score: C/O Chest Pain: No Risk Factors: Risk Factors: DM, Current or recent (<one month) smoker, HTN, HLP, family history of CAD, obesity. Risk Scores: Score 0 - 3: 2.5% MACE over next 6 weeks - Discharge Home Score 4 - 6: 20.3% MACE over next 6 weeks - Admit for Clinical Observation Score 7 - 10: 72.7% MACE over next 6 weeks - Early Invasive Strategies Allergies: Allergies: Allergies Coded Allergies Type Severity Reaction Last Updated Verified Iodinated Contrast Media Allergy Intermediate Rash 05/01/16 Yes Penicillins Allergy Intermediate unknown 05/01/16 Yes sevoflurane Adverse Reaction Unknown GAS ANESTHETIC - NAUSEA 07/02/17 No Physical Exam: PE: Constitutional: Well developed, well nourished, mild distress, non-toxic appearance. [] HENT: Normocephalic, atraumatic, bilateral external ears normal, oropharynx moist, no oral exudates, nose normal. [] Eyes: PERRLA, EOMI, conjunctiva normal, no discharge. [] Neck: Normal range of motion, no tenderness, supple, no stridor. [] Cardiovascular:Heart rate regular rhythm, no murmur [] Lungs & Thorax: Symmetrical rise and fall of the chest noted bilateral breath sounds clear to auscultation, palpation over the left chest wall underneath the left breaths has reproducible pain, no subcu emphysema or crepitus noted, no ecchymosis or contusions noted Abdomen: Bowel sounds normal, soft, no tenderness, no masses, no pulsatile masses. [] Skin: Warm, dry, no erythema, no rash. [] Back: No tenderness, no CVA tenderness. [] Extremities: No tenderness, no cyanosis, no clubbing, ROM intact, no edema. [] Neurologic: Alert and oriented X 3, normal motor function, normal sensory function, no focal deficits noted. [] Psychologic: Affect normal, judgement normal, mood normal. [] Current Patient Data: Vital Signs: Vital Signs Date Time Temp Pulse Resp B/P (MAP) Pulse Ox O2 Delivery O2 Flow Rate FiO2 12/31/21 09:45 98.2 97 18 164/85 (111) 97 Room Air 98.2 Vital Signs Date Time Temp Pulse Resp B/P (MAP) Pulse Ox O2 Delivery O2 Flow Rate FiO2 12/31/21 09:45 98.2 97 18 164/85 (111) 97 Room Air 98.2 EKG: EKG: [] Radiology/Procedures: Radiology/Procedures: REASON: left chest wall pain PROCEDURE: CHEST PA & LATERAL EXAMINATION: XR CHEST 2V CLINICAL HISTORY: Left chest wall pain. EXAM DATE/TIME: 12/31/2021 10:11 AM COMPARISON: 04/30/2021 FINDINGS: Lines, Tubes, and Devices: None. Cardiomediastinal Silhouette: Normal heart size. Aortic atherosclerotic calcification. Lungs and Pleura: No evidence of focal airspace consolidation or pleural effusion. Pulmonary vasculature unremarkable. Bones and Soft Tissues: Degenerative changes in the thoracic spine. IMPRESSION: No evidence of acute cardiopulmonary abnormality or significant interval change. Electronically signed by: Tito Zuluaga DO (12/31/2021 10:22 AM) [id number] REASON: left chest/abd swelling, pain PROCEDURE: CT CHEST ABDOMEN PELVIS WO CT CHEST_ABDOMEN_ AND PELVIS WITHOUT CONTRAST History: Chest pain. Abdominal pain. Technique: CT of the chest, abdomen and pelvis were performed with intravenous contrast. Coronal and sagittal reconstructions were performed. Exposure: One or more of the following individualized dose reduction techniques were utilized for this examination: 1. Automated exposure control 2. Adjustment of the mA and/or kV according to patient size 3. Use of iterative reconstruction technique. Comparison: CT abdomen pelvis April 30, 2021 Findings: Chest: No pathologic lymphadenopathy. Residual thymus within the anterior mediastinum. Coronary artery calcifications. Minimal pericardial effusion. No pl eural effusion. No consolidation. No pneumothorax. Small mass within the right breast measures 0.9 x 0.9 cm. 2 mm left upper lobe pulmonary nodule (series 3 image 27). Abdomen and pelvis: Hepatomegaly with geographic steatosis, similar compared to prior. The spleen, adrenal glands, pancreas and gallbladder are unremarkable. No biliary ductal dilatation. No renal calculus. No hydronephrosis. Decompressed urinary bladder. Appendix not well seen. No evidence of bowel obstruction. No pathologic lymphadenopathy. No ascites. Prior hysterectomy. Mild atheromatous plaque throughout the nonaneurysmal abdominal aorta and branch vessels. Bones: No pathologic osseous lesions. Impression: Chest CT: 1. No acute thoracic pathology. 2. Small right breast mass. Recommend mammogram and ultrasound follow-up. 3. Tiny left upper lobe pulmonary nodule. Recommend one-year follow-up chest CT without contrast if high risk. Abdomen and pelvis CT: 1. No acute abdominal or pelvic pathology. 2. Hepatomegaly with steatosis. Electronically signed by: Wilson Rodriguez DO (12/31/2021 11:33 AM) [id number] [] Course & Med Decision Making: Course & Med Decision Making Pertinent Labs and Imaging studies reviewed. (See chart for details) 1155 reviewed radiological results with patient, did inform her there was no acute processes noted on the CT scan or the chest x-ray at this time. She states that she is wondering if it also was an exacerbation of her lupus, she states she has not been seen for her lupus for over 12 months, and that she has been able to get into her manufacturing technology analyst for management of her lupus in quite some time. Patient is encouraged to ice the affected area 20 minutes on 3-4 times daily take hydrocodone 1 to 2 tablets every 6 hours as needed for severe pain, [id number] Motrin as labeled directed for pain, Lidoderm patches as needed to that area to help with pain as well 12 hours on and 12 hours off. Patient will be a list of resources to establish a primary care physician for all of her medical issues. Patient verbalized understanding. Molina Disclaimer: Molina Disclaimer: This electronic medical record was generated, in whole or in part, using a voice recognition dictation system. Departure Departure Impression: Primary Impression: Acute chest wall pain Disposition: HOME / SELF CARE / HOMELESS Condition: STABLE Referrals: UNKNOWN PCP NAME (PCP) Patient Instructions: Chest Wall Pain Additional Instructions: Hydrocodone take 1 to 2 tablets every 6 hours as needed for severe pain, use with caution may cause drowsiness and constipation [id number] ibuprofen as labeled directed as needed for mild to moderate pain Ice to the affected area 20 minutes on 3-4 times daily as needed for localized pain relief and swelling Lidoderm patches [id number] 12 hours on 12 hours off to help with localized pain relief Follow-up with your primary care physician or one of the clinics listed below for further medical management of your lupus and other medical conditions Return to the emergency department for increased shortness of breath, increased work of breathing, chest pain that is continuous, or bluing of your lips or face. [place] [facility] [address] [place] [address] [facility] [address] [place] [address] [facility] [address] [facility] [place] [address] [facility] [address] [place] [address] [facility] [address] [place] [address] [facility] [address] [place] [address] [facility] [address] [place] [address] [facility] [address] [place] [address] [facility] [address] [place] [address] [facility] [address] [place] [address] Scripts Hydrocodone Bit/Acetaminophen (HYDROCODONE-APAP 5-325 ) 1 Tab Tablet 1 TAB PO PRN Q6HRS PRN for PAIN, #14 TAB 0 Refills Prov: CARLTON CHRISTOPHER MOBILE HOME PARK MANAGER 12/31/21 CARLTON CHRISTOPHER MOBILE HOME PARK MANAGER Dec 31, 2021 10:12
--- NOTE | 2021-12-31 10:24 | RAD ---
EXAMINATION: XR CHEST 2V CLINICAL HISTORY: Left chest wall pain. EXAM DATE/TIME: 12/31/2021 10:11 AM COMPARISON: 04/30/2021 FINDINGS: Lines, Tubes, and Devices: None. Cardiomediastinal Silhouette: Normal heart size. Aortic atherosclerotic calcification. Lungs and Pleura: No evidence of focal airspace consolidation or pleural effusion. Pulmonary vasculat ure unremarkable. Bones and Soft Tissues: Degenerative changes in the thoracic spine. IMPRESSION: No evidence of acute cardiopulmonary abnormality or significant interval change. Electronically signed by: Tito Zuluaga DO (12/31/2021 10:22 AM) [id number]
[2021-12-31] MEDS ORDERED: KETOROLAC 60 MG/2 ML VIAL. IM ONE (10:45)
--- NOTE | 2021-12-31 11:36 | RAD ---
CT CHEST_ABDOMEN_ AND PELVIS WITHOUT CONTRAST History: Chest pain. Abdominal pain. Technique: CT of the chest, abdomen and pelvis were performed with intravenous contrast. Coronal and sagittal reconstructions were performed. Exposure: One or more of the following individualized dose reduction techniques were utilized for thi s examination: 1. Automated exposure control 2. Adjustment of the mA and/or kV according to patient size 3. Use of iterative reconstruction technique. Comparison: CT abdomen pelvis April 30, 2021 Findings: Chest: No pathologic lymphadenopathy. Residual thymus within the anterior mediastinum. Coronary arter y calcifications. Minimal pericardial effusion. No pleural effusion. No consolidation. No pneumothora x. Small mass within the right breast measures 0.9 x 0.9 cm. 2 mm left upper lobe pulmonary nodule (series 3 image 27). Abdomen and pelvis: Hepatomegaly with geographic steatosis, similar compared to prior. The spleen, ad renal glands, pancreas and gallbladder are unremarkable. No biliary ductal dilatation. No renal calcu fan. No hydronephrosis. Decompressed urinary bladder. Appendix not well seen. No evidence of bowel obstruction. No pathologic lymphadenopathy. No ascites. Prior hysterectomy. Mild atheromatous plaque throughout the nonaneurysmal abdominal aorta and branch vessels. Bones: No pathologic osseous lesions. Impression: Chest CT: 1. No acute thoracic pathology. 2. Small right breast mass. Recommend mammogram and ultrasound follow-up. 3. Tiny left upper lobe pulmonary nodule. Recommend one-year follow-up chest CT without contrast if high risk. Abdomen and pelvis CT: 1. No acute abdominal or pelvic pathology. 2. Hepatomegaly with steatosis. Electronically signed by: Wilson Rodriguez DO (12/31/2021 11:33 AM) [id number]
[2021-12-31] MEDS ORDERED: HYDR-2761 PO (12:04)
== END 2021-12-31 13:25 | disposition home or self-care (01) ==
LOC: ER 09:36
DX: R07.89 Other chest pain (principal); E11.9 Type 2 diabetes mellitus without complications; E03.9 Hypothyroidism, unspecified; I11.0 Hypertensive heart disease with heart failure; I50.9 Heart failure, unspecified; Z86.73 Personal history of transient ischemic attack (TIA), and cerebral infarction without residual deficits; Z86.718 Personal history of other venous thrombosis and embolism; Z90.89 Acquired absence of other organs; Z90.710 Acquired absence of both cervix and uterus; Z88.0 Allergy status to penicillin; Z91.041 Radiographic dye allergy status; Z88.8 Allergy status to other drugs, medicaments and biological substances
CPT/HCPCS: 71046; 71250; 74176; 96372; 99284; J1885